=== PATIENT | female | born 1955 | race Caucasian/White ===

== ENCOUNTER 2019-11-08 16:54 | Inpatient (IN) | payer MEDICARE, MEDICAID ==
[~2019-11-08] VITALS: Ht 167.6 cm; Wt 57.2 kg
--- NOTE | 2019-11-08 17:00 | NUR ---
Bibra78, from snf, altered, hypotension started yesterday 11am, BS 136. Per daughter pt has been becoming weaker x3 days. Pt is Bulgarian speaking AAOX4. Able to move with assistance. Low BP upon assessment, Placed on 1L NS per MD order. Awaiting MD for further orders.
--- NOTE | 2019-11-08 17:19 | NUR ---
URINE SENT TO LAB
--- NOTE | 2019-11-08 17:20 | NUR ---
FAMILY RESOURCE SPECIALIST AT BEDSIDE FOR LABS
[2019-11-08 17:27] LABS: BASOPHILS % (AUTO) 0.1 % (0.0-2.0); EOSINOPHILS % (AUTO) 0.4 % (0.0-6.0); HEMATOCRIT 28 % (33-45); HEMOGLOBIN 8.7 g/dL (11.5-14.8); LYMPHOCYTES # (AUTO) 0.4 /CMM (0.8-4.8); LYMPHOCYTES % (AUTO) 1.5 % (20.0-44.0); MEAN CORPUSCULAR HGB CONC 31 g/dl (31.0-36.0); MEAN CORPUSCULAR VOLUME 94 fL (82-100); MONOCYTES # (AUTO) 0.2 /CMM (0.1-1.30); MONOCYTES % (AUTO) 0.8 % (2.0-12.0); NEUTROPHILS # (AUTO) 26.4 /CMM (1.8-8.9); NEUTROPHILS % (AUTO) 97.2 % (43.0-81.0); PLATELET COUNT (AUTO) 225 /CMM (150-450); RED BLOOD CELL COUNT(AUTO) 2.98 MIL/uL (4.0-5.2); WHITE BLOOD COUNT (AUTO) 27.2 K/uL (4.3-11.0)
[2019-11-08] MEDS ORDERED: VANCOMYCIN 1 GM in IV D5W 250 ML IV ONE (17:30)
[2019-11-08] MEDS ORDERED: MEROPENEM 1,000 MG in IV NS 0.9% 100 ML IV ONE (17:30)
[2019-11-08] MEDS ORDERED: IV NS 0.9% 1,000 ML BAG IV ONE (17:30)
--- NOTE | 2019-11-08 17:34 | NUR ---
SILK SNAPPER AT BEDSIDE FOR CENTRAL LINE INSERTION.
[2019-11-08 17:38] LABS: APPEARANCE,URINE Cloudy (CLEAR); BILIRUBIN,URINE MODERATE (NEGATIVE); BLOOD, URINE Moderate Ery/uL (NEGATIVE); COLOR,URINE Yellow (YELLOW); KETONES,URINE Negative (NEGATIVE); LEUKOCYTE ESTERASE ,URINE Small (NEGATIVE); NITRITE, URINE Negative (NEGATIVE); PROTEIN,URINE 30 mg/dl (NEGATIVE); UGLUCOSE Negative (NEGATIVE); UROBILINOGEN,URINE 0.2 EU/dL (0.2)
[2019-11-08 17:49] LABS: ALANINE AMINOTRANSFERASE 77 U/L (12-78); ALKALINE PHOSPHATASE 631 U/L (46-116); ASPARTATE AMINOTRANSFERASE 64 U/L (15-37); BILIRUBIN,DIRECT 2.7 mg/dL (0.0-0.2); BILIRUBIN,TOTAL 3.2 mg/dL (0.2-1.0); CALCIUM, SERUM 9.3 mg/dL (8.5-10.1); CARBON DIOXIDE 23 mmol/L (21-32); CHLORIDE 111 mmol/L (98-107); GLUCOSE 165 mg/dL (74-106); POTASSIUM 4.1 mmol/L (3.5-5.1); SODIUM SERUM 146 mmol/L (136-145); TOTAL PROTEIN, SERUM 6.7 g/dL (6.4-8.2)
[2019-11-08 17:51] LABS: ALBUMIN 1.2 g/dL (3.4-5.0); UREA NITROGEN, BLOOD 112 mg/dL (7-18)
[2019-11-08 17:53] LABS: BACTERIA,URINE 3+ /HPF (None Seen); SQUAMOUS EPITHELIAL CELL,UR Few /HPF (None Seen)
--- NOTE | 2019-11-08 17:55 | NUR ---
PIC INSERTED RA
--- NOTE | 2019-11-08 18:12 | NUR ---
PT RESTING. VSS.
--- NOTE | 2019-11-08 18:25 | NUR ---
CALLED FOR BED AND SUBMITTED MOVE SHEET TO ADMITTING
--- NOTE | 2019-11-08 18:25 | NUR ---
Francisca mariano in [facility] - 11/08/19 at 1826 by ESTHELA CA
[2019-11-08] MEDS ORDERED: ACET-2605 GT (18:27)
[2019-11-08] MEDS ORDERED: HYDROMORPHONE PO (18:27)
[2019-11-08] MEDS ORDERED: ACET325T53 GT (18:27)
[2019-11-08] MEDS ORDERED: AMIN887L PO (18:27)
[2019-11-08] MEDS ORDERED: CRAN3875 GT (18:27)
[2019-11-08] MEDS ORDERED: NALO1DIS2 IJ (18:27)
[2019-11-08] MEDS ORDERED: PROC10TA13 PO (18:27)
[2019-11-08] MEDS ORDERED: MULT-439 PO (18:27)
[2019-11-08] MEDS ORDERED: PAPA1TAB10 PO (18:27)
[2019-11-08] MEDS ORDERED: NUTR1PAC14 PO (18:27)
[2019-11-08] MEDS ORDERED: INSU100V42 (18:27)
[2019-11-08] MEDS ORDERED: [UNRECOGNIZED DRUG - CODE] IV (18:27)
[2019-11-08] MEDS ORDERED: ASCO500T20 GT (18:27)
[2019-11-08] MEDS ORDERED: FENT1PAT5 TD (18:27)
[2019-11-08] MEDS ORDERED: PANT40TA4 PO (18:27)
[2019-11-08] MEDS ORDERED: SCOP1PAT11 TD (18:27)
[2019-11-08] MEDS ORDERED: OCTR200V2 IJ (18:27)
[2019-11-08] MEDS ORDERED: ONDA8TAB13 PO (18:27)
--- NOTE | 2019-11-08 19:08 | NUR ---
AFTER FLUIDS BY 91/37 HR: 100 96 ON 2L NC
[2019-11-08 19:11] LABS: BAND % (MANUAL) 9 % (0.0-5.0); EOSINOPHILS % (MANUAL) 1 % (0-4); LYMPHOCYTES % (MANUAL) 2 % (16-48); NEUTROPHILS % (MANUAL) 88 (42-76)
[2019-11-08] MEDS ORDERED: NOREPINEPHRINE 8 MG in IV D5W 500 ML IV PRN ×2 (19:30→23:30)
--- NOTE | 2019-11-08 19:30 | NUR ---
ANDREZ CALLED ITS KERZUMA
--- NOTE | 2019-11-08 19:36 | NUR ---
PT STARTED ON LEVO 5MCG/MIN HR: 101 BP: 78/40 O2: 97 ON 2L NC DAUGHTER AT BEDSIDE. WILL CONTINUE TO MONITOR.
--- NOTE | 2019-11-08 20:44 | NUR ---
ICU 252
[2019-11-08] MEDS ORDERED: VANCOMYCIN HCL 0.75 GM in IV D5W 250 ML IV SCH (21:00)
[2019-11-08] MEDS ORDERED: HYDROCODONE/APAP 5/325MG 1 EACH TABLET PO PRN (21:00)
[2019-11-08] MEDS ORDERED: VANCOMYCIN HCL 1.25 GM in IV D5W 260 ML IV ONE (21:00)
[2019-11-08] MEDS ORDERED: ACETAMINOPHEN 325 MG TABLET PO PRN (21:00)
[2019-11-08] MEDS ORDERED: ZOLPIDEM TARTRATE 5 MG TABLET PO PRN (21:00)
[2019-11-08] MEDS ORDERED: MAGNESIUM HYDROXIDE 30 ML UDC PO PRN (21:00)
[2019-11-08] MEDS ORDERED: MAG HYDROX/AL HYDROX/SIMETH 30 ML UDC PO PRN (21:00)
[2019-11-08] MEDS ORDERED: MEROPENEM 500 MG in IV NS 0.9% 50 ML IV SCH (21:00)
[2019-11-08] MEDS ORDERED: Z GUARD REMEDY 2 OZ OINT TP PRN (21:00)
--- NOTE | 2019-11-08 21:34 | NUR ---
DUPLEX AT BEDSIDE
[2019-11-08] MEDS ORDERED: FEE PK DOSING 1 MIN EA MC ONE (22:06)
[2019-11-08] MEDS ORDERED: ENOXAPARIN SODIUM 100 MG/ML DISP.SYRIN SQ STA (22:11)
[2019-11-08] MEDS ORDERED: ENOXAPARIN SODIUM 100 MG/ML DISP.SYRIN SQ ONE (22:23)
--- NOTE | 2019-11-08 23:00 | NUR ---
REPORT GIVEN TO ADELIA HUDSON FOR DOMINGO
[2019-11-08] MEDS ORDERED: HYDROMORPHONE 1 MG/1 ML DISP.SYRIN ONE (23:08)
--- NOTE | 2019-11-08 23:27 | NUR ---
PT TRANSFERED PER ACLS PROTOCOL
[2019-11-08 23:30] VITALS: BP 119/56
[2019-11-08] MEDS ORDERED: HYDROMORPHONE 1 MG/1 ML DISP.SYRIN IV PRN (23:30)
--- NOTE | 2019-11-08 23:30 | NUR ---
RN NOTES RECEIVED PATIENT FROM ER. PATIENT ARRIVED ON GURNEY . PATIENT PLACED IN ROOM 252, ON 2L O2 VIA NC WITH SPO2 OF 96%. PATIENT IS A/OX4 POLISH/ BELGIAN SPEAKING, SR ON THE INSPECTOR HEALTH CARE FACILITIES. 2 NEPHROSTOMY TUBES ARE NOTED IN PLACE DRAINING DARK YELLOW URINE. G-TUBE IS IN PLACE AND CONNECTED TO DRAINING BAG FOR GRAVITY DRAINAGE AND DRAINING GREEN FLUID. RIGHT COLOSTOMY BAG IS IN PLACE WITH MINIMAL OUTPUT OF YELLOWISH COLOR. COLOSTOMY BAG, NEPHROSTOMY TUBES AND GT DRAINAGE ARE PATIENT AND INTACT. PATIENT IS COMPLAINING OF 3/10 GENERALIZED PAIN AT THIS TIME.PATIENT LEFT LOWER EXTREMITY. IS SWOLLEN DUE TO DVT, ALSO PATIENT IS + FOR LEFT UPPER EXTREMITY DVT. PATIENT HAD RIGHT UPPER ARM PICC LINE IN PLACE AND RIGHT UPPER CHEST WALL PENTACATH IN PLACE WELL. PATIENT'S DAUGHTER IS AT THE BEDSIDE. PATIENT IS ORIENTED TO THE UNIT AND CALL [facility] AND ASKED TO CALL FOR HELP AND ASSISTANCE. ALL SAFETY MEASURES ARE IN PLACE, BED IN LOW, LOCKED POSITION, CALL LIGHT IN REACH. WILL CONTINUE TO MONITOR PATIENT CLOSELY.
[2019-11-08 23:45] VITALS: BP 115/59
[2019-11-09] VITALS (55 sets, daily range): BP systolic 102–141; BP diastolic 51–87
[2019-11-09] MEDS: HYDROMORPHONE 1 MG/1 ML DISP.SYRIN IV PRN (01:49)
[2019-11-09] MEDS: HYDROMORPHONE INJ 2 MG/ML DISP.SYRIN IV PRN ×4 (02:53→20:14)
[2019-11-09] MEDS: IV NS 0.9% 1,000 ML IV PRN ×3 (03:36→16:39)
[2019-11-09 05:40] LABS: BASOPHILS % (AUTO) 0.1 % (0.0-2.0); HEMATOCRIT 27 % (33-45); HEMOGLOBIN 8.4 g/dL (11.5-14.8); LYMPHOCYTES # (AUTO) 1.1 /CMM (0.8-4.8); LYMPHOCYTES % (AUTO) 4.3 % (20.0-44.0); MEAN CORPUSCULAR HGB CONC 31 g/dl (31.0-36.0); MEAN CORPUSCULAR VOLUME 93 fL (82-100); MONOCYTES # (AUTO) 0.7 /CMM (0.1-1.30); MONOCYTES % (AUTO) 2.8 % (2.0-12.0); NEUTROPHILS % (AUTO) 92.8 % (43.0-81.0); PLATELET COUNT (AUTO) 230 /CMM (150-450); RED BLOOD CELL COUNT(AUTO) 2.93 MIL/uL (4.0-5.2); WHITE BLOOD COUNT (AUTO) 25.9 K/uL (4.3-11.0)
[2019-11-09 05:48] LABS: THYROID STIMULATING HORMONE 0.943 uIU/mL (0.358-3.74)
[2019-11-09 05:50] LABS: CALCIUM, SERUM 8.2 mg/dL (8.5-10.1); CREATININE 0.9 mg/dL (0.6-1.3); MAGNESIUM 2.9 mg/dL (1.8-2.4); PHOSPHORUS 4.7 mg/dL (2.5-4.9); POTASSIUM 3.6 mmol/L (3.5-5.1)
[2019-11-09] MEDS: VANCOMYCIN HCL 0.75 GM in IV D5W 250 ML IV SCH ×2 (06:05→17:40)
[2019-11-09] MEDS: MEROPENEM 500 MG in IV NS 0.9% 100 ML IV SCH ×2 (06:05→17:40)
--- NOTE | 2019-11-09 07:00 | NUR ---
TROLLEY CAR OVERHAULER NOTES RECEIVED BEDSIDE REPORT. PT SLEEPING ABLE TO AROUSE WITH VOICE AND TOUCH AFGHAN SPEAKING. A/O X4 NO S/S OF RESPIRATORY DISTRESS ON 2 LTRS NC NO ACUTE PAIN NOTED AT THIS TIME. SR ON MONITOR VITALS STABLE. BILATERAL NEPHROSTOMY BAGS DRAINING CLEAR YELLOW URINE. GT TO GRAVITY DRAINING GREEN BILE. PER REPORT BILATERAL LEFT EXT + FOR DVT NO BLOOD DRAWS OR BP TO BE TAKEN ON LEFT SIDE. GEORGE PICC LEVO @ 3MCG/MIN CURRENT BP 126/56. NS @ 125 ML/HR. SAFETY PRECAUTIONS IN PLACE BED IN LOW LOCKED POSITION PAIN MANAGEMENT FOCUSED.
--- NOTE | 2019-11-09 08:29 | NUR ---
WOUND CARE CONSULT ; UNABLE TO SEE PATIENT FOR CONSULT ,UNSTABLE FOR TURNING PER NURSING ,FAMILY DOESN'T WANT TP PATIENT TO TURN, WILL ATTEMPT WHEN PATIENT STATUS PERMITS, ALL PRESSURE ULCERS PREVENTIVE MEASURERS ARE NOTED TO BE IN PLACE,ISOFLEX LINETTE BED IN USE
--- NOTE | 2019-11-09 08:30 | NUR ---
LEVOPHED TITRATED NOW ON HOLD BP 114/67 HR 95 WILL CONT TO MONITOR
[2019-11-09] MEDS: PANTOPRAZOLE 40 MG VIAL IV SCH (09:25)
[2019-11-09] MEDS: ENOXAPARIN SODIUM 60 MG/0.6 ML DISP.SYRIN SQ SCH ×2 (09:28→21:52)
--- NOTE | 2019-11-09 09:50 | NUR ---
WOUND CARE CONSULT PATIENT PER NURSING NOT ABLE TO BE TURNED FOR SKIN ASSESSMENT AND ASSESSMENT OF SACRAL ULCER. 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 PATIENT WITH DIXON AT 14. TREATMENT RECOMMENDATIONS MADE BASED ON PHOTO IMAGES. RECOMMEND TURNING AND REPOSITIONING Q 2 HOURS, BILATERAL HEEL FLOATING TOLERATED BY PATIENT. PER NURSING, PATIENT HAS PAIN WITH TURNING. ALL PRESSURE ULCER PREVENTION MEASURES ARE NOTED TO BE IN PLACE AT THIS TIME. WILL ATTEMPT TO EVALUATE PATIENT PATIENT STATUS PERMITS. ALL DISCUSSED WITH NURSING AT THE BEDSIDE.
[2019-11-09] MEDS: HYDROCORTISONE SOD SUCCINATE 100 MG/2 ML VIAL IV SCH ×3 (11:17→17:33)
[2019-11-09] MEDS: IV NS 0.9% 250 ML IV PRN (16:43)
[2019-11-09] MEDS ORDERED: TPN/PPN PER PHARMACY XX PRN (17:00)
[2019-11-09] MEDS ORDERED: FAT EMULSION 20% 500 ML in PREMIX 1 EA IV PRN (17:00)
--- NOTE | 2019-11-09 17:00 | NUR ---
per geovanny stephens NP FNS to evaluate pt in the AM for TPN start pt on D10w@100 ml/hr
[2019-11-09] MEDS: IV 10% DEXTROSE 1,000 ML IV PRN (18:46)
[2019-11-10] VITALS (32 sets, daily range): BP systolic 112–160; BP diastolic 60–84
[2019-11-10] MEDS ORDERED: IPRATROPIUM NEB FS 0.5 MG/2.5 ML AMPUL.NEB NEB PRN (01:00)
[2019-11-10] MEDS ORDERED: LEVALBUTEROL HCL NEB 1.25 MG/0.5 ML VIAL.NEB NEB PRN (01:00)
[2019-11-10] MEDS: HYDROMORPHONE INJ 2 MG/ML DISP.SYRIN IV PRN ×4 (01:01→16:07)
[2019-11-10] MEDS: IV 10% DEXTROSE 1,000 ML IV PRN (04:23)
[2019-11-10 05:21] LABS: CALCIUM, SERUM 7.8 mg/dL (8.5-10.1); MAGNESIUM 2.6 mg/dL (1.8-2.4)
--- NOTE | 2019-11-10 05:45 | NUR ---
GOT A CALL FROM LAB BLOOD WORK FOR VANCO TROUGH WAS SENT OUT AND VANCO TROUGH WILL BE DELAYED. WILL AMI FOR RESOLUTES TO ADMINISTER 0600 VANCOMYCYN.
[2019-11-10] MEDS: VANCOMYCIN HCL 0.75 GM in IV D5W 250 ML IV SCH ×2 (06:00→07:57)
[2019-11-10] MEDS: MEROPENEM 500 MG in IV NS 0.9% 100 ML IV SCH ×2 (06:07→17:38)
--- NOTE | 2019-11-10 07:10 | NUR ---
SPOKE WITH [facility] PHARMACIST WHO SAID ITS OK TO ADMINISTER 0600 VANCOMYCIN
[2019-11-10] MEDS ORDERED: DEXTROSE 50%-WATER 50 ML DISP.SYRIN IV PRN (07:30)
[2019-11-10] MEDS: HYDROCORTISONE SOD SUCCINATE 100 MG/2 ML VIAL IV SCH ×3 (08:10→17:38)
[2019-11-10] MEDS: ENOXAPARIN SODIUM 60 MG/0.6 ML DISP.SYRIN SQ SCH ×2 (08:11→21:57)
[2019-11-10] MEDS: PANTOPRAZOLE 40 MG VIAL IV SCH (08:11)
[2019-11-10] MEDS: ONDANSETRON HCL/PF 4 MG/2 ML VIAL IVP PRN (09:26)
[2019-11-10 09:48] LABS: ABG BASE EXCESS -6.8 mmol/L; ABG OXYGEN SATURATION 95.5 % (92.0-98.5); ABG PCO2 30.1 mmHg (35.0-45.0); ABG PH 7.373 (7.350-7.450); ABG PO2 84.7 mmHg (75.0-100.0); AaDO2 79.4 mmHg; COHb 0.1 % (0.5-1.5); MetHb 0.4 % (0.0-1.5); SITE, ABG Left Radial; VENT MODE, BG Nasal Cannula
[2019-11-10] MEDS: MUPIROCIN OINT 2% 22 GM TUBE SCH ×2 (10:26→22:01)
[2019-11-10] MEDS ORDERED: FEE TPN 1 MIN EA MC ONE (11:31)
[2019-11-10] MEDS: INSULIN REGULAR, HUMAN 100 UNIT/ML 3 ML VIAL SQ PRN ×3 (11:44→23:59)
[2019-11-10] MEDS ORDERED: TPN BAG #1 IV PRN ×4 (12:00)
[2019-11-10] MEDS: BLOOD SUGAR DIAGNOSTIC 1 EACH STRIP IN SCH ×3 (12:11→23:58)
[2019-11-10] MEDS: FAT EMULSION 20% 500 ML in PREMIX 1 EA IV SCH (13:54)
--- NOTE | 2019-11-10 19:15 | NUR ---
BILATERAL NEPHROSTOMY TUBES HAD EQUAL OUTPUT THROUGHOUT AM SHIFT.
--- NOTE | 2019-11-10 19:56 | NUR ---
GRAPHIC DESIGN ASSISTANT. INITIAL ASSESSMENT. RECEIVED THE PT REST ON THE BED. AWAKE, ALERT. LETHARGIC, ROVING TESTER LABORATORY SHOWING NSR. OXYGEN 2L VIA NASAL CANNULA. SAT 98%. NO ACUTE DISTRESS NOTED. HOB ELEVATED. VASQUEZ NEPHROSTOMY TUBE INTACT. COLOSTOMY TUBE INTACT. COLOSTOMY DRAINING, IV RT UPPER ARM PICC LINE. TPN 75ML/H,LIPID 20ML/H.WILL CONTINUE TO MONITOR VITALS.
[2019-11-10] MEDS: HYDROMORPHONE 1 MG/1 ML DISP.SYRIN IV PRN (21:48)
[2019-11-10] MEDS: VANCOMYCIN 500 MG in IV D5W 100 ML IV SCH (22:01)
[2019-11-10] MEDS: IV NS 0.9% 250 ML IV PRN (22:02)
[2019-11-10] MEDS ORDERED: TPN BAG #2 IV PRN ×4 (23:00)
[2019-11-11] VITALS (7 sets, daily range): BP systolic 110–141; BP diastolic 58–87
[2019-11-11] MEDS: HYDROMORPHONE INJ 2 MG/ML DISP.SYRIN IV PRN ×4 (00:25→17:54)
--- NOTE | 2019-11-11 00:34 | NUR ---
HVAC MAINTENANCE TECHNICIAN. TRANSFER THE PT TO ROOM 108. REPORT GIVEN TO CHUCK HUDSON. PT IS STABLE.
--- NOTE | 2019-11-11 00:36 | NUR ---
CUPOLA HOIST OPERATOR PT C/O GENERALIZED PAIN DILAUDID GIVEN PER MD ORDERED
--- NOTE | 2019-11-11 03:03 | NUR ---
rn notes received patient from icu endorsed by jewels barrios in stable condition. no apparent distress noted with 02 sat of 85%. Breathing even and unlabored. on nasal cannula at 2lpm tolerating well. no physical manifestation of pain or discomfort as of this time. alert to self, non verbal. noted with elevated fluid filled vesicles. picture inside the chart. kept clean and dry.
[2019-11-11] MEDS: MEROPENEM 500 MG in IV NS 0.9% 100 ML IV SCH ×2 (04:56→18:13)
[2019-11-11] MEDS: INSULIN REGULAR, HUMAN 100 UNIT/ML 3 ML VIAL SQ PRN ×3 (05:43→18:13)
[2019-11-11] MEDS: BLOOD SUGAR DIAGNOSTIC 1 EACH STRIP IN SCH ×3 (05:44→17:56)
[2019-11-11 06:53] LABS: BASOPHILS # (AUTO) 0.1 /CMM (0.0-0.2); BASOPHILS % (AUTO) 0.5 % (0.0-2.0); HEMATOCRIT 27 % (33-45); HEMOGLOBIN 9.3 g/dL (11.5-14.8); LYMPHOCYTES # (AUTO) 0.9 /CMM (0.8-4.8); LYMPHOCYTES % (AUTO) 6.3 % (20.0-44.0); MEAN CORPUSCULAR HGB CONC 34 g/dl (31.0-36.0); MEAN CORPUSCULAR VOLUME 93 fL (82-100); MONOCYTES # (AUTO) 0.4 /CMM (0.1-1.30); MONOCYTES % (AUTO) 3.1 % (2.0-12.0); NEUTROPHILS # (AUTO) 12.9 /CMM (1.8-8.9); NEUTROPHILS % (AUTO) 90.1 % (43.0-81.0); PLATELET COUNT (AUTO) 228 /CMM (150-450); RED BLOOD CELL COUNT(AUTO) 2.94 MIL/uL (4.0-5.2); WHITE BLOOD COUNT (AUTO) 14.3 K/uL (4.3-11.0)
[2019-11-11] MEDS: HYDROCORTISONE SOD SUCCINATE 100 MG/2 ML VIAL IV SCH ×3 (08:57→17:56)
[2019-11-11] MEDS: PANTOPRAZOLE 40 MG VIAL IV SCH (08:57)
[2019-11-11] MEDS: ENOXAPARIN SODIUM 60 MG/0.6 ML DISP.SYRIN SQ SCH ×2 (08:58→21:59)
[2019-11-11] MEDS: HYDROMORPHONE 1 MG/1 ML DISP.SYRIN IV PRN ×3 (09:10→21:57)
[2019-11-11] MEDS: MUPIROCIN OINT 2% 22 GM TUBE SCH ×2 (10:04→22:04)
[2019-11-11] MEDS: VANCOMYCIN 500 MG in IV D5W 100 ML IV SCH ×2 (10:11→21:56)
[2019-11-11 11:22] LABS: BILIRUBIN,DIRECT 2.4 mg/dL (0.0-0.2); BILIRUBIN,TOTAL 3.1 mg/dL (0.2-1.0); CALCIUM, SERUM 7.5 mg/dL (8.5-10.1); CREATININE 0.7 mg/dL (0.6-1.3); POTASSIUM 3.9 mmol/L (3.5-5.1); TOTAL PROTEIN, SERUM 5.9 g/dL (6.4-8.2)
[2019-11-11 11:25] LABS: ALBUMIN 1.2 g/dL (3.4-5.0)
[2019-11-11] MEDS: ONDANSETRON HCL/PF 4 MG/2 ML VIAL IVP PRN (11:37)
[2019-11-11] MEDS ORDERED: TPN BAG #3 IV PRN ×6 (13:00→14:44)
[2019-11-11] MEDS ORDERED: TPN BAG #4 IV PRN ×4 (13:00)
[2019-11-11 13:24] LABS: MAGNESIUM 2.3 mg/dL (1.8-2.4); PHOSPHORUS 2.1 mg/dL (2.5-4.9)
[2019-11-11] MEDS ORDERED: TPN BAG 4 IV PRN ×6 (14:51)
[2019-11-12] MEDS: INSULIN REGULAR, HUMAN 100 UNIT/ML 3 ML VIAL SQ PRN ×4 (00:08→23:27)
[2019-11-12] MEDS: BLOOD SUGAR DIAGNOSTIC 1 EACH STRIP IN SCH ×5 (00:09→23:40)
--- NOTE | 2019-11-12 00:20 | NUR ---
PATIENT IS AWAKE MOANING, DILAUDID 2 MG IV GIVEN PRN MED. DRESSING ON THE LEFT LOWER ABDOMEN G-TUBE CHANGED, WITH SMALL AMOUNT OF DRIED EXUDATE, WITH VERY SMALL PINKISH RASHES AROUND THE SITE, G-TUBE INTACT AND SECURED WITH PAPER TAPE, DRAINING TO A GREENISH OUTPUT TUBE CONNECTED TO A URIAS BAG. PATIENT HAS RIGHT LOWER ABDOMEN COLOSTOMY, BAG IS INTACT, NO LEAKING. WITH LIGHT BROWNISH WATERY OUTPUT, WITH VERY SMALL AMOUNT OUTPUT. PATIENT HAS BILATERAL NEPHROSTOMY TUBE INTACT, DRAINING TO AN DEEPAK COLORED OUTPUT, UNABLE TO ASSESS THE SITES AT THIS TIME, PATIENT REFUSED. PATIENT HAS MULTIPLE SKIN LESIONS ON THE LOWER ABDOMEN AND ON HER UPPER THIGHS. BED ALARM ON AND BED IN LOWEST AND LOCKED POSITION. CALL LIGHT WITHIN REACH. SON OF THE PATIENT WAS AT THE BEDSIDE EARLIER AT THE BEGINNING OF THE SHIFT. HOB ELEVATED AT ALL TIMES. PATIENT IS NPO, JEWELRY SETTER AWARE. WITH TPN RUNNING AT 75ML/HR. PATIENT IS ON O2 AT 2L/MIN. PATIENT HAS AIR MATTRESS. CONTACT ISOLATION OBSERVED AT ALL TIMES. UNABLE TO ASSESS THE PATIENT'S HEELS AT THIS TIME,PATIENT REFUSED TO BE MOVED.
--- NOTE | 2019-11-12 00:54 | NUR ---
V/S TAKEN BY THE MONUMENT STONECUTTER. RECORDED.AFEBRILE.
[2019-11-12 04:00] VITALS: BP 160/91
[2019-11-12] MEDS: HYDROMORPHONE INJ 2 MG/ML DISP.SYRIN IV PRN ×5 (04:07→20:44)
[2019-11-12] MEDS: ONDANSETRON HCL/PF 4 MG/2 ML VIAL IVP PRN ×2 (04:07→11:20)
--- NOTE | 2019-11-12 04:55 | NUR ---
BEDBATH DONE. JONATHAN-CARE DONE.PATIENT TOLERATED. KEPT PATIENT DRY. DRESSING ON THE SACRAL CHANGED. SACRAL OPEN PRESSURE ULCER-CLEANSED WITH NS, PAT DRIED, AND APPLIED SMALL PIECE OF OIL EMULSION DRESSING TO THE WOUND AND COVERED WITH MEPILEX DRESSING. TURNED PATIENT TO THE RIGHT SIDE WITH PILLOWS AT THE BACK. HOB ELEVATED. CALL LIGHT WITHIN REACH. BED ALARM ON. BED IN LOWEST AND LOCKED POSITION. BOTH HEELS OFFLOADED WITH PILLOWS. DRESSINGS ON BOTH NEPHROSTOMY TUBES ARE DRY AND INTACT, NO LEAKING. RIGHT NEPHRO TUBE DRAINED 300ML OUTPUT, AND LEFT NEPHRO SRJE=[id number]. COLOSTOMY DRAINED 25 ML OUTPUT. AND G-TUBE [id number]. RECORDED.
[2019-11-12] MEDS: MEROPENEM 500 MG in IV NS 0.9% 100 ML IV SCH ×2 (05:11→17:36)
[2019-11-12] MEDS: HYDROMORPHONE 1 MG/1 ML DISP.SYRIN IV PRN ×6 (06:05→22:47)
--- NOTE | 2019-11-12 06:14 | NUR ---
BLOOD SUGAR FINGERSTICK= 129, NO INSULIN GIVEN.
--- NOTE | 2019-11-12 07:30 | NUR ---
INITIAL PATIENT IS AWAKE MOANING, DILAUDID 2 MG IV GIVEN PRN MED. DRESSING ON THE LEFT LOWER ABDOMEN G-TUBE CHANGED, WITH SMALL AMOUNT OF DRIED EXUDATE, WITH VERY SMALL PINKISH RASHES AROUND THE SITE, G-TUBE INTACT AND SECURED WITH PAPER TAPE, DRAINING TO A GREENISH OUTPUT TUBE CONNECTED TO A URIAS BAG. PATIENT HAS RIGHT LOWER ABDOMEN COLOSTOMY, BAG IS INTACT, NO LEAKING. WITH LIGHT BROWNISH WATERY OUTPUT, WITH VERY SMALL AMOUNT OUTPUT. PATIENT HAS BILATERAL NEPHROSTOMY TUBE INTACT, DRAINING TO AN DEEPAK COLORED OUTPUT, UNABLE TO ASSESS THE SITES AT THIS TIME, PATIENT REFUSED. PATIENT HAS MULTIPLE SKIN LESIONS ON THE LOWER ABDOMEN AND ON HER UPPER THIGHS. BED ALARM ON AND BED IN LOWEST AND LOCKED POSITION. CALL LIGHT WITHIN REACH. SON OF THE PATIENT WAS AT THE BEDSIDE EARLIER AT THE BEGINNING OF THE SHIFT. HOB ELEVATED AT ALL TIMES. PATIENT IS NPO, DOBBY LOOM WEAVER AWARE. WITH TPN RUNNING AT 75ML/HR. PATIENT IS ON O2 AT 2L/MIN. PATIENT HAS AIR MATTRESS. CONTACT ISOLATION OBSERVED AT ALL TIMES. UNABLE TO ASSESS THE PATIENT'S HEELS AT THIS TIME,PATIENT REFUSED TO BE MOVED.
[2019-11-12 08:00] VITALS: BP_SYST 110; BP_SYST 133; BP_DIAS 65; BP_DIAS 69
[2019-11-12] MEDS: VANCOMYCIN 500 MG in IV D5W 100 ML IV SCH (09:00)
[2019-11-12] MEDS: PANTOPRAZOLE 40 MG VIAL IV SCH (09:06)
[2019-11-12] MEDS: ENOXAPARIN SODIUM 60 MG/0.6 ML DISP.SYRIN SQ SCH ×2 (09:06→20:45)
[2019-11-12] MEDS: MUPIROCIN OINT 2% 22 GM TUBE SCH ×2 (09:07→21:09)
[2019-11-12] MEDS: HYDROCORTISONE SOD SUCCINATE 100 MG/2 ML VIAL IV SCH ×2 (09:07→17:21)
[2019-11-12 09:49] LABS: CALCIUM, SERUM 7.3 mg/dL (8.5-10.1); CREATININE 0.7 mg/dL (0.6-1.3); MAGNESIUM 1.9 mg/dL (1.8-2.4); PHOSPHORUS 1.6 mg/dL (2.5-4.9)
[2019-11-12 09:54] LABS: POTASSIUM 2.8 mmol/L (3.5-5.1)
--- NOTE | 2019-11-12 10:23 | NUR ---
LABS TEXT DAMION AQUINO ABOUT AM K+ LEVEL OF 2.8 CC RESPONDED BACK WILL MONITOR FOR ORDERS
[2019-11-12 11:47] LABS: BASOPHILS # (AUTO) 0.1 /CMM (0.0-0.2); BASOPHILS % (AUTO) 0.4 % (0.0-2.0); HEMATOCRIT 29 % (33-45); HEMOGLOBIN 9.2 g/dL (11.5-14.8); LYMPHOCYTES % (AUTO) 6.9 % (20.0-44.0); MEAN CORPUSCULAR HGB CONC 32 g/dl (31.0-36.0); MEAN CORPUSCULAR VOLUME 92 fL (82-100); MONOCYTES # (AUTO) 0.6 /CMM (0.1-1.30); MONOCYTES % (AUTO) 4.1 % (2.0-12.0); NEUTROPHILS # (AUTO) 12.7 /CMM (1.8-8.9); NEUTROPHILS % (AUTO) 88.6 % (43.0-81.0); PLATELET COUNT (AUTO) 237 /CMM (150-450); WHITE BLOOD COUNT (AUTO) 14.3 K/uL (4.3-11.0)
[2019-11-12 12:00] VITALS: BP 119/66
[2019-11-12] MEDS: FAT EMULSION 20% 500 ML in PREMIX 1 EA IV SCH (13:41)
[2019-11-12] MEDS: POTASSIUM CL. PREMIX PERIPHER. 50 ML IV SCH ×2 (15:56→17:21)
[2019-11-12 16:00] VITALS: BP 97/77
[2019-11-12] MEDS ORDERED: TPN BAG #5 IV PRN ×6 (16:00)
--- NOTE | 2019-11-12 18:15 | NUR ---
CLOSING PT KEPT SAFE ALL HIFT BED IN LOW POSITION ALARMS ON ALL MEDICATIONS GIVEN. WILL GIVE REPORT TO PM SHIFT RN FOR CONTINUITY OF CARE.
--- NOTE | 2019-11-12 19:20 | NUR ---
RN NOTE RECEIVED PT IN BED IN SEMI CASTILLO'S POSITION. PT IS ALERT AND ORIENTED X 3 WITH PERIODS OF FORGETFULNESS. PT ON TPN VIA GEORGE PICC LINE. WILL MONITOR BLOOD GLUCOSE. PT WITH BILATERAL NEPHROSTOMY TUBES AND DRAINING CLEAR DEEPAK COLORED URINE. NO INDICATIONS OF DISTRESS OR DISCOMFORT. CALL LIGHT WITHIN REACH, FAMILY AT BEDSIDE, SAFETY MEASURES IN PLACE, WILL MONITOR.
[2019-11-12 20:00] VITALS: BP 148/80
[2019-11-13] VITALS (9 sets, daily range): BP systolic 126–146; BP diastolic 72–90
[2019-11-13] MEDS: HYDROMORPHONE INJ 2 MG/ML DISP.SYRIN IV PRN ×7 (00:59→21:57)
[2019-11-13] MEDS: HYDROMORPHONE 1 MG/1 ML DISP.SYRIN IV PRN ×3 (03:14→20:06)
--- NOTE | 2019-11-13 04:54 | NUR ---
RN NOTE RECEIVED ALERT FOR CRITICAL LAB INDICATING PRELIMINARY BLOOD CULTURES SHOWING GROWTH FOR GRAM POSITIVE COCCI IN CHAINS. PT IS ALREADY ON MERREM IV Q12H AND VANCOMYCIN IV Q24H, NOTIFIED DR. GARCIA.
--- NOTE | 2019-11-13 05:00 | NUR ---
RN NOTE DR. GARCIA WITH NO NEW ORDERS REGARDING PRELIMINARY BLOOD CULTURE RESULTS.
[2019-11-13] MEDS: ONDANSETRON HCL/PF 4 MG/2 ML VIAL IVP PRN (05:54)
[2019-11-13] MEDS: MEROPENEM 500 MG in IV NS 0.9% 100 ML IV SCH ×2 (06:07→17:39)
[2019-11-13] MEDS: BLOOD SUGAR DIAGNOSTIC 1 EACH STRIP IN SCH ×3 (06:21→16:38)
--- NOTE | 2019-11-13 06:56 | NUR ---
RN NOTE PT IN BED IN SEMI CASTILLO'S POSITION. SON AT BED SIDE. ALERT AND ORIENTED X 3 WITH PERIODS OF FORGETFULNESS. DENIES PAIN OR DISCOMFORT AT THIS TIME. BILATERAL NEPHROSTOMY TUBES DRAINING DEEPAK COLORED URINE. COLOSTOMY TUBE DRAINING DARK GREEN COLORED LIQUID STOOL. CURRENTLY ON TPN VIA PICC LINE ON GEORGE AND TOLERATING WELL. PICC LINE SITE WITHOUT SIGNS OF INFECTION OR COMPLICATIONS. ON 2L OF O2 VIA NC AND TOLERATING WELL. NO SIGNS OF RESPIRATORY DISTRESS AT THIS TIME. CURRENTLY NPO. CALL LIGHT WITHIN REACH, SAFETY MEASURES IN PLACE, WILL ENDORSE TO MORNING SHIFT FOR CONTINUATION OF CARE.
[2019-11-13] MEDS ORDERED: TPN BAG #6 IV PRN ×16 (07:00→12:26)
[2019-11-13 07:37] LABS: BASOPHILS # (AUTO) 0.1 /CMM (0.0-0.2); BASOPHILS % (AUTO) 0.4 % (0.0-2.0); EOSINOPHILS % (AUTO) 0.1 % (0.0-6.0); HEMATOCRIT 30 % (33-45); HEMOGLOBIN 11.2 g/dL (11.5-14.8); LYMPHOCYTES # (AUTO) 1.6 /CMM (0.8-4.8); LYMPHOCYTES % (AUTO) 8.3 % (20.0-44.0); MEAN CORPUSCULAR HGB CONC 38 g/dl (31.0-36.0); MEAN CORPUSCULAR VOLUME 99 fL (82-100); MONOCYTES # (AUTO) 0.3 /CMM (0.1-1.30); MONOCYTES % (AUTO) 1.7 % (2.0-12.0); NEUTROPHILS # (AUTO) 17.3 /CMM (1.8-8.9); NEUTROPHILS % (AUTO) 89.5 % (43.0-81.0); PLATELET COUNT (AUTO) 351 /CMM (150-450); RED BLOOD CELL COUNT(AUTO) 2.99 MIL/uL (4.0-5.2); WHITE BLOOD COUNT (AUTO) 19.3 K/uL (4.3-11.0)
[2019-11-13 08:06] LABS: CREATININE 0.7 mg/dL (0.6-1.3); MAGNESIUM 2.1 mg/dL (1.8-2.4); PHOSPHORUS 3.4 mg/dL (2.5-4.9); POTASSIUM 5.2 mmol/L (3.5-5.1)
[2019-11-13 08:07] LABS: BAND % (MANUAL) 2 % (0.0-5.0); LYMPHOCYTES % (MANUAL) 9 % (16-48); MONOCYTES % (MANUAL) 2 % (0-11.0); NEUTROPHILS % (MANUAL) 87 (42-76)
[2019-11-13] MEDS: PANTOPRAZOLE 40 MG VIAL IV SCH (08:08)
[2019-11-13] MEDS: ENOXAPARIN SODIUM 60 MG/0.6 ML DISP.SYRIN SQ SCH ×2 (08:14→20:07)
[2019-11-13 08:18] LABS: CALCIUM, SERUM 5.4 mg/dL (8.5-10.1)
[2019-11-13] MEDS: VANCOMYCIN 500 MG in IV D5W 100 ML IV SCH (09:01)
[2019-11-13] MEDS: MUPIROCIN OINT 2% 22 GM TUBE SCH ×2 (09:02→20:10)
[2019-11-13 09:10] LABS: ALANINE AMINOTRANSFERASE < 6 U/L (12-78); ALKALINE PHOSPHATASE 518 U/L (46-116); ASPARTATE AMINOTRANSFERASE -4 U/L (15-37); BILIRUBIN,DIRECT 2.3 mg/dL (0.0-0.2); BILIRUBIN,TOTAL 4.2 mg/dL (0.2-1.0); TOTAL PROTEIN, SERUM 5.7 g/dL (6.4-8.2)
[2019-11-13] MEDS: HYDROCORTISONE SOD SUCCINATE 100 MG/2 ML VIAL IV SCH ×2 (09:29→16:44)
--- NOTE | 2019-11-13 11:56 | NUR ---
alert enough to complain of pain, abdominal pain, she said. First dose one mg DILAUDID ivp, per patient's report, did not relieve pain 1030 DILAUDID 2mg ivp given, appeared comfortable, and fell asleep. Son wants to ask whether patient , can also have Fentanyl patch, message relayed to PROFESSOR OF LITERATURE on round today, so far no order written yet, the family made aware
[2019-11-13 12:12] LABS: BILIRUBIN,TOTAL 4.2 mg/dL (0.2-1.0); CALCIUM, SERUM 7.4 mg/dL (8.5-10.1); CREATININE 0.7 mg/dL (0.6-1.3); MAGNESIUM 1.9 mg/dL (1.8-2.4); PHOSPHORUS 1.4 mg/dL (2.5-4.9); POTASSIUM 3.2 mmol/L (3.5-5.1); TOTAL PROTEIN, SERUM 6.3 g/dL (6.4-8.2)
[2019-11-13 12:14] LABS: ALBUMIN 1.2 g/dL (3.4-5.0)
[2019-11-13] MEDS: POTASSIUM CL. PREMIX PERIPHER. 50 ML IV SCH ×4 (14:40→15:31)
--- NOTE | 2019-11-13 15:32 | NUR ---
appeared comfortable with 2mg ivp DILAUDID. Continue with TPN, and thin liquids offered for oral gratification, as instructed. K+ 3.2, got replaced wtih 40meq IVPB, continue running one bag after another ( 4 bag together) BC x 2, with GR + cocci, and clusters on both aerobic, anerobic, patient has been covered with Vanco ivpb, MINGLER OPERATOR aware.
[2019-11-13] MEDS: INSULIN REGULAR, HUMAN 100 UNIT/ML 3 ML VIAL SQ PRN (16:39)
--- NOTE | 2019-11-13 19:20 | NUR ---
mechanical intern: received report from test engineering intern. pt in bed, awake, niuean speaking, last pain meds administered at 1740. pt on isolation mrsa nares. has right upper arm picc line, tlc, one port receiving tpn at bag #6 at 75.072ml/hr, other port receiving merrem iv atb. pt has rcw port-a-cath, not access. posted precaution for left arm as positive for dvt. pt has bilateral nephrostomy tube in placed, bag draining by gravity. pt gtube connected to drainage bag noted greenish colored drainage. noted ble and feet edema, offloaded on pillows. on kci mattress. safety precautions for fall initiated, call light in reach, will continue monitoring pt.
--- NOTE | 2019-11-13 19:37 | NUR ---
rn notes: met with pt's son at bedside, discussed plan of care, also ask permission regarding picture taking of skin issues since its thursday, son spoke with her mother and agree with the photos. also son stated if pt sleeping, wait for pt to call for pain medications. if asleep, to let pt sleep.
--- NOTE | 2019-11-13 20:10 | NUR ---
PRN DILAUDID: PT C/O 03/30 GENERALIZED PAIN, REQUESTING FOR DILAUDID, SON AT BED SIDE, HELPED WITH TRANSLATION. PRN DILAUDID 1MG IVP ADMINISTERED TO PT AT THIS TIME. EDUCATION PROVIDED TO PT AND FAMILY. WILL CONTINUE TO MONITOR PT.
--- NOTE | 2019-11-13 22:00 | NUR ---
prn dilaudid: pt c/o 10/10 abdl pain, requesting for dilaudid, vs taken and recorded prior to administering medication. prn dilaudid 2mg ivp administered to pt at thsi time, will continue to monitor and reassess.
[2019-11-14] VITALS (8 sets, daily range): BP systolic 128–153; BP diastolic 60–88
[2019-11-14] MEDS: HYDROMORPHONE 1 MG/1 ML DISP.SYRIN IV PRN ×7 (00:11→22:11)
--- NOTE | 2019-11-14 00:15 | NUR ---
prn dilaudid and accu check 140: blood sugar check result is 140,. 2units of insulin given per sliding scale, pt on tpn. pt c/o 03/30 abdl pain, translated by hospice patient care secretary vinh, requesting for dilaudid, prn dilaudid 1mg ivp administered to pt at this time. vs taken and recorded prior to administering medication. will continue to monitor and reassess.
[2019-11-14] MEDS: BLOOD SUGAR DIAGNOSTIC 1 EACH STRIP IN SCH ×4 (00:16→18:05)
[2019-11-14] MEDS: INSULIN REGULAR, HUMAN 100 UNIT/ML 3 ML VIAL SQ PRN ×4 (00:17→18:43)
[2019-11-14] MEDS ORDERED: TPN BAG #7 IV PRN ×6 (01:00)
[2019-11-14] MEDS: HYDROMORPHONE INJ 2 MG/ML DISP.SYRIN IV PRN ×4 (01:57→14:02)
--- NOTE | 2019-11-14 01:58 | NUR ---
prn dilaudid: pt crying c/o 06/30 abdl pain, translated in english by jewels gutiérrez, amaury dilaudid 2mg ivp administered to pt at this time. vs taken and recorded prior to administering medication. will continue to monitor and reassess pt.
--- NOTE | 2019-11-14 02:07 | NUR ---
rn notes/refusal for turning and repositioning: pt refused to be reposition, stated she's afraid to be move due to pain, educate pt that prn pain meds administered and will help with managing pain, education provided regarding worsening of sacral pressure injuries, but pt refused turning at this time, lieutenant governor made aware
--- NOTE | 2019-11-14 04:10 | NUR ---
rn notes/tpn bag #7: above tpn bag #6 consumed, completed. new bag will be administered, cosigned with rn mayra thornton. all tubings changed. duane picc line, tlc in placed, port/lumen able to flush easil;y with 10cc ns, with noted brisk blood return. director community organization vinh was approached to helped with translation as rn will be checking vs prior to administering pain medication and tpn bag.
--- NOTE | 2019-11-14 04:15 | NUR ---
PRN DILAUDID: PT C/O 03/30 ABDL PAIN REQUESTING FOR DILAUDID, PRN DILAUDID 1MG IVP ADMINISTERED TO PT AT THIS TIME. WILL CONTINUE TO MONITOR AND REASSESS PT.
[2019-11-14] MEDS: MEROPENEM 500 MG in IV NS 0.9% 100 ML IV SCH ×2 (05:56→18:37)
--- NOTE | 2019-11-14 06:00 | NUR ---
prn dilaudid/accu check 123: pt c/o 06/30 abdl den requesting for dilaudid, vinh community nurse helped with translation. prn dilaudid 2 mg ivp administered to pt at this time. blood glucose check performed , result is 123, no insulin coverage given per sliding scale, pt on tpn.
--- NOTE | 2019-11-14 06:42 | NUR ---
end of shift report: pt remains on 2l oxygen via nc, respirations even and unlabored. prn dilaudid 1mg and 2mg alternately administered per pt request, pain scale ranging 7-8/10. duane p[icc line tlc remains patent and able to flush well with 10cc normal saline, bruisk blood return noted.one port/lumen remains infusing with tpn bag # 7 at 75ml/hr. emptied nephrostomy bag on right emptied total of 300ml, left side 200ml. gtube remains connected to drainage bag via gravity, emptied total of 500ml. colostomy bag emptied 300ml. am care provided, completed linen change provided by orchestra teacher, wound care done as ordered. ble kept offloaded on pillows. plan of care per id to continue with iv atb , am labs schedule for today, per pulmo notes to hold off on thoracentesis, continue with tpn, awaiting vascular surgeon dr keyshawn cerda aware. ppe utilized for isolation mrsa nares. vs remains stable, needs attended. safety precautions for fall remains engaged, call light in reach, will endorse to day rn for continuity of care.
[2019-11-14 06:47] LABS: BASOPHILS # (AUTO) 0.1 /CMM (0.0-0.2); BASOPHILS % (AUTO) 0.4 % (0.0-2.0); HEMATOCRIT 28 % (33-45); HEMOGLOBIN 8.7 g/dL (11.5-14.8); LYMPHOCYTES # (AUTO) 1.2 /CMM (0.8-4.8); LYMPHOCYTES % (AUTO) 5.9 % (20.0-44.0); MEAN CORPUSCULAR HGB CONC 31 g/dl (31.0-36.0); MEAN CORPUSCULAR VOLUME 94 fL (82-100); MONOCYTES # (AUTO) 0.5 /CMM (0.1-1.30); MONOCYTES % (AUTO) 2.5 % (2.0-12.0); NEUTROPHILS # (AUTO) 18.9 /CMM (1.8-8.9); NEUTROPHILS % (AUTO) 91.2 % (43.0-81.0); PLATELET COUNT (AUTO) 333 /CMM (150-450); RED BLOOD CELL COUNT(AUTO) 2.97 MIL/uL (4.0-5.2); WHITE BLOOD COUNT (AUTO) 20.8 K/uL (4.3-11.0)
[2019-11-14 07:08] LABS: CALCIUM, SERUM 7.3 mg/dL (8.5-10.1); CREATININE 0.6 mg/dL (0.6-1.3); MAGNESIUM 2.2 mg/dL (1.8-2.4); POTASSIUM 4.7 mmol/L (3.5-5.1)
--- NOTE | 2019-11-14 07:15 | NUR ---
RN OPENING NOTE: RECEIVED PATIENT IN BED. AWAKE, ALERT AND ORIENTED X3 WITH SON AT BEDSIDE. ON CONT. O2 VIA NC @ 2LPM, TOLERATING WELL. NO SOB AND NOT IN RESPIRATORY DISTRESS. ON CONTACT ISOLATION, PRECAUTIONS OBSERVED. IV SITE CLEAN, DRY, PATENT AND INTACT. ON TPN AND BEING TOLERATED WELL. PAIN REPORTED AT 10/10 FOCUSED ON ABDOMINAL AREA BUT ALSO REPORTED GENERALIZED. WILL CONTINUE PAIN MANAGEMENT FOR PATIENT. BILATERAL NEPHROSTOMY TUBE DRAINING TEA COLORED URINE, GT IN PLACE AND CONNECTED TO DRAINAGE BAG VIA GRAVITY. OSTOMY POUCH WITHOUT ANY DRAINAGE. CALL LIGHT IN REACH. BED LOCKED, LOW AND AT SEMI-CASTILLO'S POSITION. SIDE RAILS UP X3. SAFETY ENSURED AND OBSERVED. WILL CONTINUE TO MONITOR.
[2019-11-14 08:38] LABS: LYMPHOCYTES % (MANUAL) 7 % (16-48); METAMYELOCYTES % 2 % (0-0); MONOCYTES % (MANUAL) 2 % (0-11.0); MYELOCYTES % 2 % (0-0); NEUTROPHILS % (MANUAL) 87 (42-76)
[2019-11-14] MEDS: HYDROCORTISONE SOD SUCCINATE 100 MG/2 ML VIAL IV SCH (09:56)
[2019-11-14] MEDS: PANTOPRAZOLE 40 MG VIAL IV SCH (09:56)
[2019-11-14] MEDS: ENOXAPARIN SODIUM 60 MG/0.6 ML DISP.SYRIN SQ SCH ×2 (09:57→20:31)
[2019-11-14] MEDS: VANCOMYCIN 500 MG in IV D5W 100 ML IV SCH (09:58)
[2019-11-14] MEDS: MUPIROCIN OINT 2% 22 GM TUBE SCH ×2 (09:58→20:50)
[2019-11-14] MEDS ORDERED: LORAZEPAM 1 MG TABLET PO PRN (10:00)
[2019-11-14] MEDS ORDERED: LORAZEPAM INJ 2 MG/ML VIAL IV PRN (12:00)
[2019-11-14] MEDS ORDERED: TPN BAG #8 IV PRN ×7 (14:30)
[2019-11-14] MEDS ORDERED: TPN BAG #9 IV PRN ×5 (14:30)
[2019-11-14] MEDS: FAT EMULSION 20% 500 ML in PREMIX 1 EA IV SCH (14:46)
[2019-11-14] MEDS: FENTANYL PATCH (100 MCG/HR) 100 MCG/HR PATCH.TD72 TD SCH (16:17)
--- NOTE | 2019-11-14 18:00 | NUR ---
RN NOTE: TPN BAG CHANGED TO #8 PER CHERYL FROM PHARMACY.
--- NOTE | 2019-11-14 19:20 | NUR ---
RN OPENING NOTES RECEIVED PATIENT IN BED, AWAKE, ALERT AND ORIENTEDX3 WITH SON AT BEDSIDE. ABLE TO MAKE NEEDS KNOWN. ON OXYGEN 2L VIA NC, TOLERATING WELL. NO SOB OR RESPIRATORY DISTRESS NOTED. IV SITE GEORGE PICC, SITE C/D/I, FLUSHING AND PATENT; ON TPN BAG #8 RUNNING AT 75ML/HR AND IV LIPIDS RUNNING AT 20ML/HR, BOTH TOLERATING WELL. C/O PAIN 06/30 FOCUSED ON ABDOMINAL AREA BUT ALSO REPORTED GENERALIZED, WILL CONTINUE PAIN MANAGEMENT FOR PATIENT. BILATERAL NEPHROSTOMY TUBE DRAINING WELL, GT IN PLACE AND CONNECTED TO DRAINAGE BAG VIA GRAVITY, DRAINING WELL. OSTOMY POUCH INTACT. SAFETY MEASURES IN PLACE; CALL LIGHT WITHIN REACH, BED LOCKED AND IN LOWEST POSITION, SIDE RAILS UP X3, HOB ELEVATED. WILL CONT TO MONITOR PT CLOSELY.
--- NOTE | 2019-11-14 19:20 | NUR ---
RN CLOSING NOTE: PATIENT STILL IN BED. AWAKE, ALERT AND ORIENTED X3 WITH SON AT BEDSIDE. NO ACUTE CHANGES NOTED ON SHIFT. ON CONT. O2 VIA NC @ 3LPM, TOLERATING WELL. NO SOB AND NOT IN RESPIRATORY DISTRESS. ON CONTACT ISOLATION, PRECAUTIONS OBSERVED. IV SITE CLEAN, DRY, PATENT AND INTACT. ON TPN AND FAT EMULSION INFUSION AND BEING TOLERATED WELL. PAIN STILL REPORTED AT 10/10 FOCUSED ON ABDOMINAL AREA BUT ALSO REPORTED GENERALIZED. WITH NEW ORDERS FOR PAIN MANAGEMENT. BILATERAL NEPHROSTOMY TUBE DRAINING TEA COLORED URINE, GT IN PLACE AND CONNECTED TO DRAINAGE BAG VIA GRAVITY. OSTOMY POUCH WITHOUT ANY DRAINAGE. CALL LIGHT IN REACH. BED LOCKED, LOW AND AT SEMI-CASTILLO'S POSITION. SIDE RAILS UP X3. SAFETY ENSURED AND OBSERVED. ENDORSED TO CURRICULUM COUNSELOR FOR DOMINGO.
[2019-11-14] MEDS: HYDROCODONE/APAP 5/325MG 1 EACH TABLET PO PRN (20:37)
[2019-11-15] MEDS: BLOOD SUGAR DIAGNOSTIC 1 EACH STRIP IN SCH ×4 (00:34→17:14)
[2019-11-15] MEDS: HYDROCODONE/APAP 5/325MG 1 EACH TABLET PO PRN ×6 (00:37→22:51)
[2019-11-15] MEDS: INSULIN REGULAR, HUMAN 100 UNIT/ML 3 ML VIAL SQ PRN ×4 (00:38→17:15)
[2019-11-15] MEDS: HYDROMORPHONE 1 MG/1 ML DISP.SYRIN IV PRN ×5 (02:12→19:39)
[2019-11-15 04:00] VITALS: BP 152/78
[2019-11-15] MEDS: MEROPENEM 500 MG in IV NS 0.9% 100 ML IV SCH ×2 (05:39→17:14)
[2019-11-15 07:12] LABS: CALCIUM, SERUM 6.8 mg/dL (8.5-10.1); CREATININE 0.5 mg/dL (0.6-1.3); MAGNESIUM 2.1 mg/dL (1.8-2.4); PHOSPHORUS 1.9 mg/dL (2.5-4.9); POTASSIUM 3.3 mmol/L (3.5-5.1)
--- NOTE | 2019-11-15 07:13 | NUR ---
RN CLOSING NOTES PATIENT RESTING IN BED, AWAKE, ALERT AND ORIENTEDX3, ABLE TO MAKE NEEDS KNOWN. ON OXYGEN 2L VIA NC, TOLERATING WELL. NO SOB OR RESPIRATORY DISTRESS NOTED. IV SITE GEORGE PICC, SITE C/D/I, FLUSHING AND PATENT; ON TPN BAG #9 RUNNING AT 75ML/HR AND IV LIPIDS RUNNING AT 20ML/HR, BOTH TOLERATING WELL. BILATERAL NEPHROSTOMY TUBE DRAINING WELL, GT IN PLACE AND CONNECTED TO DRAINAGE BAG VIA GRAVITY, DRAINING WELL. OSTOMY POUCH INTACT. KEPT PT CLEAN, DRY, AND COMFORTABLE. ALL MD ORDERS ATTENDED. SAFETY MEASURES MAINTAINED. ENDORSED TO AM RN FOR DOMINGO.
[2019-11-15 08:00] VITALS: BP 133/80
[2019-11-15] MEDS: VANCOMYCIN 500 MG in IV D5W 100 ML IV SCH (08:42)
[2019-11-15] MEDS: PANTOPRAZOLE 40 MG VIAL IV SCH (08:42)
[2019-11-15 09:00] LABS: BASOPHILS % (AUTO) 0.2 % (0.0-2.0); EOSINOPHILS % (AUTO) 0.1 % (0.0-6.0); HEMATOCRIT 29 % (33-45); HEMOGLOBIN 9.7 g/dL (11.5-14.8); LYMPHOCYTES # (AUTO) 1.6 /CMM (0.8-4.8); LYMPHOCYTES % (AUTO) 8.1 % (20.0-44.0); MEAN CORPUSCULAR HGB CONC 34 g/dl (31.0-36.0); MEAN CORPUSCULAR VOLUME 94 fL (82-100); MONOCYTES # (AUTO) 0.4 /CMM (0.1-1.30); MONOCYTES % (AUTO) 2.2 % (2.0-12.0); NEUTROPHILS # (AUTO) 17.6 /CMM (1.8-8.9); NEUTROPHILS % (AUTO) 89.4 % (43.0-81.0); PLATELET COUNT (AUTO) 433 /CMM (150-450); RED BLOOD CELL COUNT(AUTO) 3.09 MIL/uL (4.0-5.2); WHITE BLOOD COUNT (AUTO) 19.7 K/uL (4.3-11.0)
[2019-11-15] MEDS ORDERED: HYDROCORTISONE SOD SUCCINATE 100 MG/2 ML VIAL IV SCH (09:00)
[2019-11-15] MEDS: MUPIROCIN OINT 2% 22 GM TUBE SCH ×2 (09:02→21:15)
[2019-11-15] MEDS: ENOXAPARIN SODIUM 60 MG/0.6 ML DISP.SYRIN SQ SCH ×2 (09:54→21:16)
--- NOTE | 2019-11-15 11:30 | NUR ---
RN NOTES seen and examined by Pedro Huber NP. hospitalist informed regarding the need of stronger pain medication since the medication that are being given at this time seem to be not helping the patient. Obtained order for pain management. Dr. Pierce made aware of the consult
[2019-11-15 12:00] VITALS: BP 119/66
[2019-11-15] MEDS ORDERED: TPN BAG #10 IV PRN ×8 (12:30)
[2019-11-15] MEDS ORDERED: TPN BAG #11 IV PRN ×6 (12:30)
--- NOTE | 2019-11-15 13:00 | NUR ---
RN NOTES Paged ADEN Huber to relay low level of potassium and phosphorus. awaiting response
[2019-11-15 16:00] VITALS: BP 140/88
--- NOTE | 2019-11-15 16:00 | NUR ---
RN NOTES Paged ADEN Huber to relay low level of potassium and phosphorus. awaiting response
--- NOTE | 2019-11-15 17:00 | NUR ---
RN NOTES spoke to CecileCASINO HOST was able to relat at this time. has verbalized that he will input orders himself. will wait for orders
[2019-11-15 18:00] VITALS: BP 140/88
--- NOTE | 2019-11-15 19:26 | NUR ---
RN NOTES endorsed for continuity of care. no significant changes within the shift. breathing non labored. patient with continuous complaints of pain despite routine administration of medicine. all nursing needs attended as much as possible. call light within reach. safety measures in place at all times. isolation precaution implemented at all times
--- NOTE | 2019-11-15 19:45 | NUR ---
MS RN OPENING NOTES RECEIVED PATIENT RESTING IN BED, AWAKE, ALERT AND ORIENTEDX3, ABLE TO MAKE NEEDS KNOWN. ON OXYGEN 2L VIA NC, TOLERATING WELL. NO SOB OR RESPIRATORY DISTRESS NOTED. IV SITE GEORGE PICC, SITE C/D/I, FLUSHING AND PATENT; ON TPN BAG #9 RUNNING AT 75ML/HR TOLERATING WELL. BILATERAL NEPHROSTOMY TUBE DRAINING WELL, GT IN PLACE AND CONNECTED TO DRAINAGE BAG VIA GRAVITY, DRAINING WELL. OSTOMY POUCH INTACT. SAFETY MEASURES MAINTAINED. BED IN LOW/LOCKED POSITION CALL LIGHT WITHIN REACH. WILL CONTINUE TO MONITOR.
[2019-11-15 20:00] VITALS: BP 133/84
[2019-11-16] MEDS: BLOOD SUGAR DIAGNOSTIC 1 EACH STRIP IN SCH ×4 (00:56→17:45)
[2019-11-16] MEDS: HYDROMORPHONE 1 MG/1 ML DISP.SYRIN IV PRN ×4 (02:18→22:44)
[2019-11-16 04:00] VITALS: BP 133/84
[2019-11-16] MEDS: MEROPENEM 500 MG in IV NS 0.9% 100 ML IV SCH ×2 (06:29→18:26)
[2019-11-16 06:43] LABS: CALCIUM, SERUM 7.1 mg/dL (8.5-10.1); CREATININE 0.6 mg/dL (0.6-1.3); MAGNESIUM 2.1 mg/dL (1.8-2.4); PHOSPHORUS 3.6 mg/dL (2.5-4.9); POTASSIUM 3.1 mmol/L (3.5-5.1)
[2019-11-16 07:23] LABS: BASOPHILS # (AUTO) 0.1 /CMM (0.0-0.2); BASOPHILS % (AUTO) 0.9 % (0.0-2.0); EOSINOPHILS % (AUTO) 0.1 % (0.0-6.0); HEMATOCRIT 27 % (33-45); HEMOGLOBIN 8.5 g/dL (11.5-14.8); LYMPHOCYTES # (AUTO) 0.7 /CMM (0.8-4.8); LYMPHOCYTES % (AUTO) 4.4 % (20.0-44.0); MEAN CORPUSCULAR HGB CONC 31 g/dl (31.0-36.0); MEAN CORPUSCULAR VOLUME 95 fL (82-100); MONOCYTES # (AUTO) 0.4 /CMM (0.1-1.30); MONOCYTES % (AUTO) 2.7 % (2.0-12.0); NEUTROPHILS # (AUTO) 13.8 /CMM (1.8-8.9); NEUTROPHILS % (AUTO) 91.9 % (43.0-81.0); PLATELET COUNT (AUTO) 379 /CMM (150-450); RED BLOOD CELL COUNT(AUTO) 2.86 MIL/uL (4.0-5.2)
--- NOTE | 2019-11-16 07:36 | NUR ---
MS RN CLOSING NOTES PATIENT RESTING IN BED, ALERT AND ORIENTED X3, ABLE TO MAKE NEEDS KNOWN. ON OXYGEN 2L VIA NC, TOLERATING WELL. NO SOB OR RESPIRATORY DISTRESS NOTED. IV SITE GEORGE PICC, SITE C/D/I, FLUSHING AND PATENT; ON TPN BAG #10 RUNNING AT 75ML/HR TOLERATING WELL. BILATERAL NEPHROSTOMY TUBE DRAINING WELL, GT IN PLACE AND CONNECTED TO DRAINAGE BAG VIA GRAVITY, DRAINING WELL. OSTOMY POUCH INTACT. PATIENT IS NPO SINCE MIDNIGHT DUE TO SURGERY IN THE AM. SAFETY MEASURES MAINTAINED. BED IN LOW/LOCKED POSITION CALL LIGHT WITHIN REACH. ENDORSED THE PATIENT TO AM RN FOR DOMINGO.
[2019-11-16 07:49] LABS: EOSINOPHILS % (MANUAL) 1 % (0-4); LYMPHOCYTES % (MANUAL) 5 % (16-48); MONOCYTES % (MANUAL) 3 % (0-11.0); NEUTROPHILS % (MANUAL) 91 (42-76)
[2019-11-16 08:00] VITALS: BP 129/80
[2019-11-16] MEDS: PANTOPRAZOLE 40 MG VIAL IV SCH (08:38)
[2019-11-16] MEDS: MUPIROCIN OINT 2% 22 GM TUBE SCH ×2 (08:43→21:02)
[2019-11-16] MEDS: ENOXAPARIN SODIUM 60 MG/0.6 ML DISP.SYRIN SQ SCH ×2 (09:00→21:01)
--- NOTE | 2019-11-16 10:24 | NUR ---
WOUND CARE FOLLOW UP: UNABLE TO SEE PT FOR WOUND/SKIN ASSESSMENT DUE TO PT IN O.R. AT THIS TIME. WILL SEE PT PT CONDITION PERMITS.
[2019-11-16] MEDS ORDERED: LIDOCAINE HCL/PF 1% 30 ML SDV ONE (10:25)
[2019-11-16 12:00] VITALS: BP 138/77
--- NOTE | 2019-11-16 12:00 | NUR ---
rn note pt came back to unit from or vs stable, will monitor. co pain in the right chest previous telma cath site. will give paim
[2019-11-16] MEDS ORDERED: METOCLOPRAMIDE HCL 10 MG/2 ML VIAL IV PRN (12:30)
[2019-11-16] MEDS ORDERED: POTASSIUM CHLORIDE 10 MEQ/50 ML PREMIXED IVPB FOR PERIPHERAL LINE IV ONE ×2 (12:30→14:00)
[2019-11-16] MEDS ORDERED: TPN BAG #12 IV PRN ×7 (15:30)
[2019-11-16] MEDS: FAT EMULSION 20% 500 ML in PREMIX 1 EA IV SCH (15:42)
[2019-11-16 16:00] VITALS: BP 138/85
--- NOTE | 2019-11-16 17:00 | NUR ---
rn note pt refused KUB TO BE PERFORMED, STATING "ITS TOO MUCH FOR ME I DO NOT WANT IT NOW, MAY BE TOMORROW". RISKS AND BENEFITS EXPLAINED, SON AWARE, NOTIFIED. PT BEEN VOMITING A LOT TODAY REFUSED ZOFRAN AND REGLAN. GTUBE OUTPUT WAS DECREASED, MAY BE DUE TO KINK AT THE SITE PT WAS PRESSING THE TUBE WITH HER ARM RESTING ON TOP OF HER ABDOMEN, WHEN REPOSITIONED DRAINAGE IMPROVED. WILL MONITOR.
[2019-11-16] MEDS: INSULIN REGULAR, HUMAN 100 UNIT/ML 3 ML VIAL SQ PRN (17:52)
--- NOTE | 2019-11-16 19:10 | NUR ---
PATIENT RESTING IN BED, ALERT AND ORIENTED X3, ABLE TO MAKE NEEDS KNOWN. ON OXYGEN 2L VIA NC, TOLERATING WELL. NO SOB OR RESPIRATORY DISTRESS NOTED. IV SITE GEORGE PICC, SITE FLUSHING PATENT AND INTACT; ON TPN BAG #10 RUNNING AT 75ML/HR TOLERATING WELL. BILATERAL NEPHROSTOMY TUBE DRAINING WELL, GT IN PLACE AND CONNECTED TO DRAINAGE BAG VIA GRAVITY, DRAINING WELL. OSTOMY POUCH INTACT. SAFETY MEASURES MAINTAINED. BED IN LOW/LOCKED POSITION CALL LIGHT WITHIN REACH. WILL CONTINUE TO MONITOR.
[2019-11-16] MEDS: PROCHLORPERAZINE EDISYLATE 10 MG/2 ML VIAL IM PRN (19:49)
[2019-11-16 20:00] VITALS: BP 134/72
[2019-11-17] MEDS: INSULIN REGULAR, HUMAN 100 UNIT/ML 3 ML VIAL SQ PRN ×4 (00:32→18:01)
[2019-11-17] MEDS: BLOOD SUGAR DIAGNOSTIC 1 EACH STRIP IN SCH ×4 (00:33→17:54)
[2019-11-17] MEDS: PROCHLORPERAZINE EDISYLATE 10 MG/2 ML VIAL IM PRN ×2 (01:03→15:04)
[2019-11-17] MEDS: HYDROMORPHONE 1 MG/1 ML DISP.SYRIN IV PRN ×4 (02:56→21:24)
[2019-11-17 04:00] VITALS: BP 134/72
[2019-11-17] MEDS: MEROPENEM 500 MG in IV NS 0.9% 100 ML IV SCH ×2 (06:26→17:06)
[2019-11-17 07:12] LABS: CALCIUM, SERUM 7.3 mg/dL (8.5-10.1); CREATININE 0.6 mg/dL (0.6-1.3); MAGNESIUM 2.1 mg/dL (1.8-2.4); PHOSPHORUS 3.3 mg/dL (2.5-4.9); POTASSIUM 3.1 mmol/L (3.5-5.1)
[2019-11-17 07:19] LABS: FERRITIN 4471 ng/mL (8-388)
[2019-11-17 07:29] LABS: BASOPHILS # (AUTO) 0.1 /CMM (0.0-0.2); BASOPHILS % (AUTO) 0.5 % (0.0-2.0); EOSINOPHILS % (AUTO) 0.1 % (0.0-6.0); HEMATOCRIT 26 % (33-45); HEMOGLOBIN 9.5 g/dL (11.5-14.8); LYMPHOCYTES # (AUTO) 2.8 /CMM (0.8-4.8); LYMPHOCYTES % (AUTO) 17.8 % (20.0-44.0); MEAN CORPUSCULAR HGB CONC 36 g/dl (31.0-36.0); MEAN CORPUSCULAR VOLUME 95 fL (82-100); MONOCYTES # (AUTO) 0.4 /CMM (0.1-1.30); MONOCYTES % (AUTO) 2.7 % (2.0-12.0); NEUTROPHILS # (AUTO) 12.3 /CMM (1.8-8.9); NEUTROPHILS % (AUTO) 78.9 % (43.0-81.0); PLATELET COUNT (AUTO) 467 /CMM (150-450); RED BLOOD CELL COUNT(AUTO) 2.76 MIL/uL (4.0-5.2); WHITE BLOOD COUNT (AUTO) 15.6 K/uL (4.3-11.0)
[2019-11-17 07:37] LABS: IRON, SERUM 34 ug/dl (50-175); TOTAL IRON BINDING CAPACITY 153 ug/dl (250-450)
--- NOTE | 2019-11-17 07:45 | NUR ---
RN NOTE: Received patient in bed, awake, alert and verbally responsive. On O2 @l/min via NC saturating 97%. No facial grimacing noted at this time. HOB elevated. 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 (R) UA PICC line noted intact and patent with TPN bag #11 infusing and LIpids @ 20ml/hr. GT site noted draining greenish liquid output, (B) nephrostomy was noted draining well to gravity with yellow urine and the colostomy site was draining with serous color drainage. On [employer] 1st step mattress for skin management. Patient refused to be turned and repositioned at this time. Call light within reach. Needs anticipated.
[2019-11-17 08:00] VITALS: BP 138/89
[2019-11-17] MEDS: PANTOPRAZOLE 40 MG VIAL IV SCH (09:04)
[2019-11-17] MEDS: ENOXAPARIN SODIUM 60 MG/0.6 ML DISP.SYRIN SQ SCH ×2 (09:05→21:01)
[2019-11-17] MEDS: MUPIROCIN OINT 2% 22 GM TUBE SCH ×2 (09:15→20:58)
--- NOTE | 2019-11-17 10:14 | NUR ---
WOUND CARE CONSULT WOUND CARE RECEIVED CONSULT FOR LOWER ABDOMEN PUSTULES. WOUND CARE WILL DEFER CONSULT FOR THESE LESIONS TO PLASTIC SURGICAL TEAM FOR EVALUATION AND TREATMENT. WILL SEE PRN.
[2019-11-17] MEDS: POTASSIUM CL. PREMIX PERIPHER. 50 ML IV SCH ×4 (11:17→15:39)
[2019-11-17] MEDS ORDERED: TPN BAG #14 IV PRN ×8 (11:30)
[2019-11-17] MEDS ORDERED: TPN BAG #13 IV PRN ×6 (11:30)
[2019-11-17] MEDS ORDERED: LIDOCAINE 1%-EPI 1:100,000 20 ML VIAL TP STA (13:45)
--- NOTE | 2019-11-17 15:00 | NUR ---
RN NOTE: Kelvin, son was at the bedside and he was informed about the plan for serial debridement of the sacrum and biopsy of abdomen and thigh area to see if the skin lesions were cancerous. aubrie Warren agreed and signed the informed consent. Filed to patient's chart.
--- NOTE | 2019-11-17 15:45 | NUR ---
RN NOTE: BRITANY Quiles was at the bedside and performed the biopsy of the abdomen and thigh area and debrided the sacral area. Patient tolerated the procedure at the bedside. Patient was pre-medicated prior to the procedure.
[2019-11-17] MEDS: FENTANYL PATCH (100 MCG/HR) 100 MCG/HR PATCH.TD72 TD SCH (15:52)
[2019-11-17 16:00] VITALS: BP 121/75
[2019-11-17] MEDS: HYDROGEL DRESSING 90 GM TUBE TP SCH (16:32)
--- NOTE | 2019-11-17 18:10 | NUR ---
RN NOTE: Patient's (L) nephrostomy tube drained 150 ml of urine, (R) nephrostomy tube drained 250ml of urine, colostomy bag had a serous liquid out 50 ml and GT drainage was greenish in color with 950 ml output.
--- NOTE | 2019-11-17 19:22 | NUR ---
RN OPENING NOTE PATIENT ASLEEP IN BED. SON AT BEDSIDE. ON OXYGEN 2L VIA NC, TOLERATING WELL. NO SOB OR RESPIRATORY DISTRESS NOTED. IV SITE GEORGE PICC, SITE FLUSHING PATENT AND INTACT; ON TPN BAG #12 RUNNING AT 75ML/HR TOLERATING WELL. BILATERAL NEPHROSTOMY TUBE DRAINING WELL, GT IN PLACE AND CONNECTED TO DRAINAGE BAG VIA GRAVITY, DRAINING WELL. OSTOMY POUCH INTACT. SAFETY MEASURES MAINTAINED. BED IN LOW/LOCKED POSITION CALL LIGHT WITHIN REACH. WILL CONTINUE TO MONITOR.
--- NOTE | 2019-11-17 19:30 | NUR ---
RN NOTE: Bedside report was given to TRISTAN Nolan for continuity of care. Patient's son Kelvin was at the bedside. Lory John NP spoke with the patient and son Kelvin regarding the patient's NPO status, but patient was still noted sipping water, soda and juice at the bedside.
[2019-11-17 20:00] VITALS: BP 145/84
[2019-11-18] MEDS: BLOOD SUGAR DIAGNOSTIC 1 EACH STRIP IN SCH ×3 (00:15→12:00)
[2019-11-18] MEDS: INSULIN REGULAR, HUMAN 100 UNIT/ML 3 ML VIAL SQ PRN ×2 (01:21→06:12)
[2019-11-18] MEDS: MEROPENEM 500 MG in IV NS 0.9% 100 ML IV SCH (05:44)
[2019-11-18 06:29] LABS: BASOPHILS # (AUTO) 0.1 /CMM (0.0-0.2); BASOPHILS % (AUTO) 0.4 % (0.0-2.0); EOSINOPHILS % (AUTO) 0.4 % (0.0-6.0); HEMATOCRIT 28 % (33-45); HEMOGLOBIN 8.9 g/dL (11.5-14.8); LYMPHOCYTES # (AUTO) 0.7 /CMM (0.8-4.8); LYMPHOCYTES % (AUTO) 4.3 % (20.0-44.0); MEAN CORPUSCULAR HGB CONC 32 g/dl (31.0-36.0); MEAN CORPUSCULAR VOLUME 94 fL (82-100); MONOCYTES # (AUTO) 0.6 /CMM (0.1-1.30); MONOCYTES % (AUTO) 3.6 % (2.0-12.0); NEUTROPHILS # (AUTO) 14.2 /CMM (1.8-8.9); NEUTROPHILS % (AUTO) 91.3 % (43.0-81.0); PLATELET COUNT (AUTO) 386 /CMM (150-450); RED BLOOD CELL COUNT(AUTO) 2.97 MIL/uL (4.0-5.2); WHITE BLOOD COUNT (AUTO) 15.5 K/uL (4.3-11.0)
[2019-11-18 06:33] LABS: CALCIUM, SERUM 7.7 mg/dL (8.5-10.1); CREATININE 0.6 mg/dL (0.6-1.3); MAGNESIUM 2.1 mg/dL (1.8-2.4); PHOSPHORUS 3.1 mg/dL (2.5-4.9); POTASSIUM 3.2 mmol/L (3.5-5.1)
[2019-11-18] MEDS: HYDROMORPHONE 1 MG/1 ML DISP.SYRIN IV PRN ×3 (06:55→18:29)
--- NOTE | 2019-11-18 07:28 | NUR ---
RN CLOSING NOTE PATIENT ASLEEP IN BED. ON OXYGEN 2L VIA NC, TOLERATING WELL. NO SOB OR RESPIRATORY DISTRESS NOTED. IV SITE GEORGE PICC, SITE FLUSHING PATENT AND INTACT; ON TPN BAG #13 RUNNING AT 75ML/HR TOLERATING WELL. BILATERAL NEPHROSTOMY TUBE DRAINING WELL, GT IN PLACE AND CONNECTED TO DRAINAGE BAG VIA GRAVITY, DRAINING WELL. OSTOMY POUCH INTACT. SAFETY MEASURES MAINTAINED. BED IN LOW/LOCKED POSITION CALL LIGHT WITHIN REACH. WILL ENDORSE TO AM NURSE FOR DOMINGO
[2019-11-18 08:00] VITALS: BP 130/81
[2019-11-18] MEDS ORDERED: IV NS 0.9% 1,000 ML IV STA (08:41)
[2019-11-18] MEDS ORDERED: ENOX60DI SQ (08:46)
[2019-11-18] MEDS ORDERED: PROC10VI IM (08:46)
[2019-11-18] MEDS ORDERED: METO5VIA6 IV (08:46)
[2019-11-18] MEDS ORDERED: MERO500V21 IV (08:46)
[2019-11-18] MEDS ORDERED: TPN ADD IV (08:46)
[2019-11-18] MEDS: ENOXAPARIN SODIUM 60 MG/0.6 ML DISP.SYRIN SQ SCH (09:25)
[2019-11-18] MEDS: PANTOPRAZOLE 40 MG VIAL IV SCH (09:26)
[2019-11-18] MEDS: MUPIROCIN OINT 2% 22 GM TUBE SCH (09:29)
[2019-11-18] MEDS: HYDROGEL DRESSING 90 GM TUBE TP SCH (09:29)
[2019-11-18 10:00] VITALS: BP 130/81
--- NOTE | 2019-11-18 13:00 | NUR ---
very alert, talked today, appeared comfortable with FENTANYL patch 100mcg, applied on 11/14. did not ask for pain meds. continues with TPN , now taping down to 37 cc /hr, and in two hours 18.5 cc per hour, before turned it off prior to discharge back to [facility], report given to Sophie [phone]. Son already left today, but aware the patient's transfer.
[2019-11-18] MEDS: FAT EMULSION 20% 500 ML in PREMIX 1 EA IV SCH (14:00)
--- NOTE | 2019-11-18 16:45 | NUR ---
patient leaving with GEORGE picc line, triple lumen intact, for the continuation of abx MEROPENEM through 11/23, which explained in details Sophie, the one who took the report. sons would be follow the ambulance to [facility] with the patient
--- NOTE | 2019-11-18 18:32 | NUR ---
just now ambulance ready to crop picker the patient, son again approached to ask more pain meds for the patient, " at the SNF, they took their time, so my mother will be so much in pain, i want DILAUDID now for her. 1mg DILAUDID ivp given per son's request prior to departure.
== END 2019-11-18 18:42 | DRG 981 ==
LOC: ER 16:57 → ICU 21:11 → TELE-TD 11-11 00:30 → MEDSG1 11-11 16:49
PROVIDERS: ADMIT Student in an Organized Health Care Education/Training Program; ATTEND Registered Nurse
PROC: 02HV33Z Insertion of Infusion Device into Superior Vena Cava, Percutaneous Approach (ICD-10-PCS; 2019-11-08)
PROC: B548ZZA Ultrasonography of Superior Vena Cava, Guidance (ICD-10-PCS; 2019-11-08)
PROC: 0JPT3WZ Removal of Totally Implantable Vascular Access Device from Trunk Subcutaneous Tissue and Fascia, Percutaneous Approach (ICD-10-PCS; 2019-11-16)
PROC: 0KBP0ZZ Excision of Left Hip Muscle, Open Approach (ICD-10-PCS; principal; 2019-11-17)
PROC: 0KBN0ZZ Excision of Right Hip Muscle, Open Approach (ICD-10-PCS; 2019-11-17)
PROC: 0JB83ZX Excision of Abdomen Subcutaneous Tissue and Fascia, Percutaneous Approach, Diagnostic (ICD-10-PCS; 2019-11-17)
PROC: 0JBM3ZX Excision of Left Upper Leg Subcutaneous Tissue and Fascia, Percutaneous Approach, Diagnostic (ICD-10-PCS; 2019-11-17)
DX: T80.211A Bloodstream infection due to central venous catheter, initial encounter (principal); A41.9 Sepsis, unspecified organism; L89.154 Pressure ulcer of sacral region, stage 4; R65.21 Severe sepsis with septic shock; J15.6 Pneumonia due to other Gram-negative bacteria; G93.41 Metabolic encephalopathy; E43 Unspecified severe protein-calorie malnutrition; E87.1 Hypo-osmolality and hyponatremia; D68.69 Other thrombophilia; E87.2 Acidosis; C56.9 Malignant neoplasm of unspecified ovary; C78.80 Secondary malignant neoplasm of unspecified digestive organ; E27.40 Unspecified adrenocortical insufficiency; I82.492 Acute embolism and thrombosis of other specified deep vein of left lower extremity; I82.622 Acute embolism and thrombosis of deep veins of left upper extremity; J90 Pleural effusion, not elsewhere classified; N17.9 Acute kidney failure, unspecified; B96.20 Unspecified Escherichia coli [E. coli] as the cause of diseases classified elsewhere; R04.0 Epistaxis; Z86.718 Personal history of other venous thrombosis and embolism; E86.0 Dehydration; I10 Essential (primary) hypertension; Z93.3 Colostomy status; Z79.4 Long term (current) use of insulin; R74.0 Nonspecific elevation of levels of transaminase and lactic acid dehydrogenase [LDH]; E11.9 Type 2 diabetes mellitus without complications; F41.9 Anxiety disorder, unspecified; E88.09 Other disorders of plasma-protein metabolism, not elsewhere classified; Z68.20 Body mass index [BMI] 20.0-20.9, adult; Z93.6 Other artificial openings of urinary tract status; Z22.322 Carrier or suspected carrier of Methicillin resistant Staphylococcus aureus; Y84.8 Other medical procedures as the cause of abnormal reaction of the patient, or of later complication, without mention of misadventure at the time of the procedure; Y92.129 Unspecified place in nursing home as the place of occurrence of the external cause; Z90.710 Acquired absence of both cervix and uterus; Z92.21 Personal history of antineoplastic chemotherapy; E87.6 Hypokalemia; D63.8 Anemia in other chronic diseases classified elsewhere; L08.9 Local infection of the skin and subcutaneous tissue, unspecified; R19.00 Intra-abdominal and pelvic swelling, mass and lump, unspecified site; R22.9 Localized swelling, mass and lump, unspecified; D63.0 Anemia in neoplastic disease; G89.3 Neoplasm related pain (acute) (chronic); R13.10 Dysphagia, unspecified; Z91.19 Patient's noncompliance with other medical treatment and regimen
CPT/HCPCS: 36415; 36569; 36600; 71045-TC; 74018; 80048-TC; 80053-TC; 80061-TC; 80076-TC; 80202-TC; 81000-TC; 82533; 82728-TC; 82962-TC; 83540-TC; 83605-TC; 83735-TC; 84100-TC; 84443-TC; 84478-TC; 84484-TC; 85025-TC; 85730-TC; 86304; 87040-TC; 87070-TC; 87081-TC; 87086-TC; 87186-TC; 88300-TC; 88305-TC; 88341; 88342; 92611-TC; 93971-TC; A4216; A6248; A6402; A9563; C1751; C9113; G0378; J0780; J1170; J1650; J1720; J1815; J2185; J2405; J2704; J3370; J3475; J3480; J3490; J7030; J7050; J7060

== ENCOUNTER 2019-11-22 20:14 | Inpatient (IN) | payer MEDICARE, MEDICAID ==
[~2019-11-22] VITALS: Ht 167.6 cm; Wt 62.6 kg
[~2019-11-22 20:14] MED LIST: ACET-2605 GT; ACET325T53 GT; AMIN887L PO; ASCO500T20 GT; CRAN3875 GT; ENOX60DI SQ; FENT1PAT5 TD; HYDROMORPHONE PO; INSU100V42; MERO500V21 IV; METO5VIA6 IV; MULT-439 PO; NALO1DIS2 IJ; NUTR1PAC14 PO; OCTR200V2 IJ; ONDA8TAB13 PO; PANT40TA4 PO; PAPA1TAB10 PO; PROC10TA13 PO; PROC10VI IM; SCOP1PAT11 TD; TPN ADD IV; [UNRECOGNIZED DRUG - CODE] IV
--- NOTE | 2019-11-22 20:20 | NUR ---
[id number] FROM [facility] C/O GEN WEAKNESS AND O2 DESAT 88% ROOM AIR RECENT DX UTI, PT AWAKE, ALERT, PLACED ON MONITOR, +PICC LINE, +BILAT NEPHROSTOMY TUBES, +UROSTOMY, +COLOSTOMY. DR TRAMMELL AT BEDSIDE FOR EVAL
[2019-11-22 20:48] LABS: BASOPHILS # (AUTO) 0.1 /CMM (0.0-0.2); HEMATOCRIT 29 % (33-45); HEMOGLOBIN 9.2 g/dL (11.5-14.8)
[2019-11-22 20:52] LABS: BASOPHILS % (AUTO) 0.5 % (0.0-2.0); LYMPHOCYTES # (AUTO) 0.9 /CMM (0.8-4.8); LYMPHOCYTES % (AUTO) 5.7 % (20.0-44.0); MEAN CORPUSCULAR HGB CONC 31 g/dl (31.0-36.0); MEAN CORPUSCULAR VOLUME 95 fL (82-100); MONOCYTES # (AUTO) 0.6 /CMM (0.1-1.30); NEUTROPHILS # (AUTO) 14.5 /CMM (1.8-8.9); NEUTROPHILS % (AUTO) 89.8 % (43.0-81.0); PLATELET COUNT (AUTO) 490 /CMM (150-450); RED BLOOD CELL COUNT(AUTO) 3.08 MIL/uL (4.0-5.2); WHITE BLOOD COUNT (AUTO) 16.2 K/uL (4.3-11.0)
[2019-11-22 21:09] LABS: BILIRUBIN,URINE MODERATE (NEGATIVE); BLOOD, URINE Large Ery/uL (NEGATIVE); KETONES,URINE Negative (NEGATIVE); LEUKOCYTE ESTERASE ,URINE Small (NEGATIVE); NITRITE, URINE Negative (NEGATIVE); PROTEIN,URINE 100 mg/dl (NEGATIVE); UGLUCOSE Negative (NEGATIVE); UROBILINOGEN,URINE 0.2 EU/dL (0.2)
[2019-11-22 21:15] LABS: APPEARANCE,URINE SLIGHTLY CLOUDY (CLEAR); COLOR,URINE DARK YELLOW (YELLOW)
[2019-11-22] MEDS ORDERED: VANCOMYCIN 1 GM VIAL ONE (21:15)
[2019-11-22] MEDS ORDERED: PROCHLORPERAZINE EDISYLATE 10 MG/2 ML VIAL ONE (21:15)
[2019-11-22] MEDS ORDERED: MEROPENEM 1 G VIAL IV ONE (21:15)
[2019-11-22 21:18] LABS: BACTERIA,URINE Many /HPF (None Seen); RBC,URINE 21-50 /HPF (0-2); SQUAMOUS EPITHELIAL CELL,UR Few /HPF (None Seen); YEAST,URINE Many /HPF (None Seen)
[2019-11-22 21:21] LABS: ALANINE AMINOTRANSFERASE 94 U/L (12-78); ALKALINE PHOSPHATASE 423 U/L (46-116); ASPARTATE AMINOTRANSFERASE 77 U/L (15-37); BILIRUBIN,DIRECT 3.1 mg/dL (0.0-0.2); BILIRUBIN,TOTAL 3.8 mg/dL (0.2-1.0); CALCIUM, SERUM 8.1 mg/dL (8.5-10.1); CARBON DIOXIDE 31 mmol/L (21-32); CHLORIDE 107 mmol/L (98-107); CREATININE 1.2 mg/dL (0.6-1.3); GLUCOSE 129 mg/dL (74-106); SODIUM SERUM 149 mmol/L (136-145); TOTAL PROTEIN, SERUM 6.2 g/dL (6.4-8.2)
[2019-11-22 21:26] LABS: ALBUMIN 1.1 g/dL (3.4-5.0); UREA NITROGEN, BLOOD 85 mg/dL (7-18)
[2019-11-22 21:29] LABS: LYMPHOCYTES % (MANUAL) 6 % (16-48); MONOCYTES % (MANUAL) 4 % (0-11.0); NEUTROPHILS % (MANUAL) 90 (42-76)
[2019-11-22] MEDS ORDERED: VANCOMYCIN 1 GM in IV D5W 250 ML IV ONE (21:30)
[2019-11-22] MEDS ORDERED: PROCHLORPERAZINE EDISYLATE 10 MG/2 ML VIAL IVP ONE (21:30)
[2019-11-22] MEDS ORDERED: IV NS 0.9% 1,000 ML BAG IV ONE (21:30)
[2019-11-22] MEDS ORDERED: MEROPENEM 1,000 MG in IV NS 0.9% 100 ML IV ONE (21:30)
[2019-11-22] MEDS ORDERED: HYDR4TAB4 GT (22:38)
[2019-11-22] MEDS ORDERED: METO10SY IV (22:38)
[2019-11-22] MEDS ORDERED: SIME120L GT (22:38)
[2019-11-22] MEDS ORDERED: DOCU-141 GT (22:38)
[2019-11-22] MEDS ORDERED: ENOX60DI SQ (22:38)
--- NOTE | 2019-11-22 22:41 | NUR ---
REPORT GIVEN TO DELPHINE HUDSON FOR DOMINGO; PT WILL BE TRANSPORTED TO 3RD FLOOR
[2019-11-22 22:50] VITALS: BP 103/62
[2019-11-22 22:55] VITALS: BP 103/62
[2019-11-22 23:00] VITALS: BP 103/62
[2019-11-23] VITALS (7 sets, daily range): BP systolic 90–104; BP diastolic 52–63
[2019-11-23] MEDS ORDERED: Z GUARD REMEDY 2 OZ OINT TP PRN
[2019-11-23] MEDS ORDERED: HYDROCODONE/APAP 5/325MG 1 EACH TABLET PO PRN
[2019-11-23] MEDS ORDERED: ACETAMINOPHEN 650 MG/SUPP.RECT RC PRN
--- NOTE | 2019-11-23 | NUR ---
RN NOTES RECEIVED PATIENT FROM ED, DX SEVERE SEPSIS, GI BLEED, UTI, HCAP, ALERT AND ORIENTED X3, ON 4LPM VIA NC, SPO2 91%, LUNG SOUNDS WET, GURGLING, VOMITING BROWN, METALLIC SMELLING EMESIS, BILATERAL NEPHROSTOMY, SUTURED, DRAINING DEEPAK COLORED URINE, GT TUBE DRAINING VIA URIAS BAG WITH GREENISH AND BROWN DRAINAGE, COLOSTOMY CHANGED, STOMA IS EXCORIATED, UNDEFINED STOMA, WITH 2 SMALL MEGGAN OUTSIDE STOMA, STOOL IS YELLOWISH LIQUID, NO ODOR, SACRAL WOUND, LEFT ARM EDEMA, BILATERAL FOOT EDEMA, BILATERAL HIP AND THIGH WITH MULTIPLE VESICLES, SKIN IS HARD AND RIGID DUE TO GENERALIZED EDEMA, MG AND POTASSIUM BEING REPLACED.
--- NOTE | 2019-11-23 00:17 | NUR ---
RN NOTES NOTIFIED SURVEYOR HELPER JULIANNE OF LACTIC ACID OF 3.0, NO NEW ORDER
[2019-11-23] MEDS ORDERED: DEXTROSE 50%-WATER 50 ML DISP.SYRIN IV PRN (00:30)
[2019-11-23] MEDS: IV D5W 1,000 ML IV PRN ×2 (00:40→15:16)
[2019-11-23] MEDS: Magnesium 1GM/D5W 100ML PREMIX 100 ML IV SCH ×2 (00:47→01:56)
[2019-11-23] MEDS: POTASSIUM CL. PREMIX PERIPHER. 50 ML IV SCH ×4 (00:59→04:02)
[2019-11-23] MEDS: ONDANSETRON HCL/PF 4 MG/2 ML VIAL IVP PRN ×2 (01:54→16:09)
--- NOTE | 2019-11-23 04:50 | NUR ---
RN NOTES NOTIFIED CHEESE TESTER JULIANNE, PATIENT VOMITING BLOOD SINCE ADMISSION, IF HGB < 7, TRANSFUSE PRBC 1 UNIT
[2019-11-23 06:24] LABS: BASOPHILS % (AUTO) 0.1 % (0.0-2.0); HEMATOCRIT 27 % (33-45); HEMOGLOBIN 8.3 g/dL (11.5-14.8); LYMPHOCYTES # (AUTO) 0.7 /CMM (0.8-4.8); LYMPHOCYTES % (AUTO) 4.9 % (20.0-44.0); MEAN CORPUSCULAR HGB CONC 31 g/dl (31.0-36.0); MEAN CORPUSCULAR VOLUME 95 fL (82-100); MONOCYTES # (AUTO) 0.6 /CMM (0.1-1.30); MONOCYTES % (AUTO) 4.1 % (2.0-12.0); NEUTROPHILS # (AUTO) 13.2 /CMM (1.8-8.9); NEUTROPHILS % (AUTO) 90.9 % (43.0-81.0); PLATELET COUNT (AUTO) 431 /CMM (150-450); RED BLOOD CELL COUNT(AUTO) 2.79 MIL/uL (4.0-5.2); WHITE BLOOD COUNT (AUTO) 14.5 K/uL (4.3-11.0)
[2019-11-23] MEDS: BLOOD SUGAR DIAGNOSTIC 1 EACH STRIP IN SCH ×3 (06:45→17:41)
[2019-11-23 06:48] LABS: THYROID STIMULATING HORMONE 3.753 uIU/mL (0.358-3.74)
--- NOTE | 2019-11-23 07:20 | NUR ---
ALERT AND ORIENTED X3, 4LPM VIA NC, TACHYCARDIA, AFEBRILE, GIVEN TYLENOL X1 FOR TEMP OF 99.1F, LOW BP, ACTIVELY VOMITING BLOOD TINGED EMESIS, IF HGB FALLS TO < 7.0, THERE IS A STANDING ORDER FOR BLOOD TRANSFUSION, COLOSTOMY DRAINING, NEPHROSTOMY DRAINING DEEPAK COLORED URINE, ENDORSED NEEDS TO AM NURSE FOR CONTINUITY OF CARE.
--- NOTE | 2019-11-23 07:20 | NUR ---
COMMUNICATIONS OPERATOR OPENING NOTES RECEIVED PT IN BED, AWAKE, A/O X3-4. PT ON SUPPLEMENTARY OXYGEN AT 4L VIA NC SATURATION OF 94%, WITH NO ACUTE RESPIRATORY DISTRESS NOTED. PT DENIES ANY PAIN OR DISCOMFORT AT THIS TIME. PT DENIES ANY CONCERNS OR QUESTIONS AT THE MOMENT WELL. PT HAS COLOSTOMY BAG IN PLACE WITH NO SIGNS OF BLEEDING AND GT FOR DRAINAGE WITH DARK RED IN COLOR. 2 NEPHROSTOMY BAG NOTED WELL RIGHT AND LEFT, BOTH WITH YELLOWISH TO PINK OUTPUT, PER NIGHT NURSE LEFT IS DRAINING LESS THAN THE RIGHT. PT HAS TRIPLE LUMEN PICC TO GEORGE, ON GOING D5W AT 75 ML/HR AND LAST BAG OF POTASSIUM REPLACEMENT BY NIGHT NURSE. PT KEPT COMFORTABLE IN BED. CALL LIGHT KEPT WITHIN REACH. PT'S BED IN LOWEST LOCKED POSITION WITH SR X3. WILL CONTINUE PLAN OF CARE.
[2019-11-23] MEDS ORDERED: FEE PK DOSING 1 MIN EA MC ONE (07:26)
--- NOTE | 2019-11-23 07:30 | NUR ---
TROUBLE LOCATER NOTES RECEIVED CALL FROM LAB REGARDING 8.1 POTASSIUM, RN REQUESTED FOR REDRAW, PT JUST HAD 40MEQS TOTAL POTASSIUM REPLACEMENT LAST NIGHT, LEVEL FROM 3.08. AWAITING FOR RWDRAW RESULT. WILL NOTIFY HOSPITALIST.
--- NOTE | 2019-11-23 07:31 | NUR ---
CHILLER HAND NOTES STOPPED LAST BAG OF POTASSIUM INFUSING FROM NIGHT NURSE, AWAITING FOR RE DRAWING THE BMP. PT MADE AWARE.
[2019-11-23] MEDS ORDERED: MEROPENEM 500 MG in IV NS 0.9% 50 ML IV SCH (09:00)
[2019-11-23] MEDS: MEROPENEM 500 MG in IV NS 0.9% 100 ML IV SCH ×2 (09:04→21:05)
[2019-11-23 09:17] LABS: BILIRUBIN,TOTAL 3.9 mg/dL (0.2-1.0); CALCIUM, SERUM 7.7 mg/dL (8.5-10.1); CREATININE 1.2 mg/dL (0.6-1.3); PHOSPHORUS 4.9 mg/dL (2.5-4.9); POTASSIUM 3.6 mmol/L (3.5-5.1); TOTAL PROTEIN, SERUM 5.7 g/dL (6.4-8.2)
--- NOTE | 2019-11-23 09:30 | NUR ---
CHEMICAL ETCHING PROCESSOR NOTES BMP REDRAWN,RESULTS CAME BACK. INFORMED MD/SK REGARDING BUN OF 82 AND ALBUMIN OF 1.0 AWAITING FOR RESPONSE. WILL CONTINUE TO MONITOR PT. RESTARTED THE LAST BAG OF POTASSIUM FROM LAST NIGHT. CURRENT POTASSIUM LEVL IS 3.6. AWAITING FOR RESPONSE.
--- NOTE | 2019-11-23 09:41 | NUR ---
PIPE ROLLER NOTES SPOKE TO MD/SK PRESENT IN THE UNIT REGARDING CURRENT LABS. NO NEW ORDERS STATED. RN NOTED WELL. WILL CONTINUE TO MONITOR PT.
[2019-11-23] MEDS ORDERED: VANCOMYCIN 0.75 GM in IV NS 0.9% 250 ML IV SCH (11:00)
[2019-11-23] MEDS ORDERED: VANCOMYCIN 0.75 GM in IV D5W 250 ML IV SCH (12:11)
--- NOTE | 2019-11-23 13:03 | NUR ---
MS RN NOTES RECEIVED ORDER FROM SK, FOR SR. MERCHANDISE PLANNER CONSULT FOR TPN USE. AND PER MD/MARYLU, SHE CONTACTED DR PHAM PERSONALLY FOR GI CONSULT. SON PRESENT AT BEDSIDE MADE AWARE OF PLAN.
[2019-11-23] MEDS ORDERED: MORPHINE SULFATE INJ 2 MG/ML DISP.SYRIN IV PRN (15:00)
[2019-11-23] MEDS ORDERED: METOCLOPRAMIDE HCL 10 MG/2 ML VIAL IV SCH (16:30)
[2019-11-23 16:59] LABS: BASOPHILS % (AUTO) 0.3 % (0.0-2.0); HEMATOCRIT 27 % (33-45); HEMOGLOBIN 8.7 g/dL (11.5-14.8); LYMPHOCYTES % (AUTO) 6.2 % (20.0-44.0); MEAN CORPUSCULAR HGB CONC 32 g/dl (31.0-36.0); MEAN CORPUSCULAR VOLUME 95 fL (82-100); MONOCYTES # (AUTO) 0.5 /CMM (0.1-1.30); MONOCYTES % (AUTO) 3.3 % (2.0-12.0); NEUTROPHILS # (AUTO) 14.8 /CMM (1.8-8.9); NEUTROPHILS % (AUTO) 90.2 % (43.0-81.0); PLATELET COUNT (AUTO) 440 /CMM (150-450); RED BLOOD CELL COUNT(AUTO) 2.89 MIL/uL (4.0-5.2); WHITE BLOOD COUNT (AUTO) 16.4 K/uL (4.3-11.0)
[2019-11-23] MEDS: PANTOPRAZOLE 40 MG VIAL IV SCH (17:33)
[2019-11-23] MEDS: HYDROGEL DRESSING 90 GM TUBE TP SCH (18:30)
--- NOTE | 2019-11-23 19:00 | NUR ---
MS RN NOTES RECEIVED CALL FROM DR PHAM REGARDING PT'S SCHEDULE FOR TOMORROW FOR EGD AT 6AM. CONSENTS SIGNED BY SON AT BEDSIDE WITH PT'S PERMISSION. PER PT IS VERY WEAK TO SIGN. CN/NB MADE AWARE OF THE SITUATION WELL.
--- NOTE | 2019-11-23 19:28 | NUR ---
MS RN CLOSING NOTES PT REMAINS IN BED, INTERMITTENTLY DOZING OFF, A/O X3-4. PT ON SUPPLEMENTARY OXYGEN AT 4L VIA NC SATURATION OF 92-93%, WITH NO ACUTE RESPIRATORY DISTRESS NOTED. SON/LAVERN AT BEDSIDE. PT DENIES ANY PAIN OR DISCOMFORT AT THIS TIME.PT HAS COLOSTOMY BAG IN PLACE WITH NO SIGNS OF BLEEDING. GT FOR DRAINAGE WITH DARK RED IN COLOR, OUTPUT OF 250ML. (2) NEPHROSTOMY BAG NOTED WELL, RIGHT HAS OUTPUT OF 250ML AND LEFT HAS 50ML, BOTH WITH YELLOWISH TO PINK OUTPUT. PT HAS TRIPLE LUMEN PICC TO GEORGE, ON GOING D5W AT 75 ML/HR INTACT AND OPERATIONAL. PT KEPT COMFORTABLE IN BED. ALL NEEDS AND CARE ATTENDED AND PROVIDED. CALL LIGHT KEPT WITHIN REACH. PT'S BED IN LOWEST LOCKED POSITION WITH SR X3. WILL ENDORSED TO INCOMING NIGHT NURSE FOR DOMINGO.
[2019-11-23] MEDS ORDERED: FLUCONAZOLE IN NS 100 ML IV ONE (22:17)
[2019-11-23] MEDS: FLUCONAZOLE IN NS 100 MG in PREMIX 1 EA IV SCH ×2 (22:32)
[2019-11-24] VITALS (33 sets, daily range): BP systolic 76–139; BP diastolic 36–80
[2019-11-24] MEDS: BLOOD SUGAR DIAGNOSTIC 1 EACH STRIP IN SCH ×5 (00:27→23:27)
[2019-11-24] MEDS: VANCOMYCIN 0.75 GM in IV D5W 250 ML IV SCH ×2 (00:27→11:00)
[2019-11-24] MEDS: IV D5W 1,000 ML IV PRN ×3 (05:07→23:19)
[2019-11-24] MEDS: PANTOPRAZOLE 40 MG VIAL IV SCH ×2 (05:07→16:12)
--- NOTE | 2019-11-24 05:15 | NUR ---
MS RN NOTES PT STATES "I'M NOT NOT FEELING WELL" PER SON. VITALS CHECKED. BP 80/43 HR 114. RECHECKED BP 76/44, HR 114. REPOSITIONED PT TO [place]. NOTIFIED LUKE WHITAKER CRANK HAND FOR [facility]. CADET DECK MADE AWARE RE PT'S CONDITION. WITH NEW ORDERS MADE. ORDERS NOTED AND CARRIED OUT. WILL CONTINUE TO MONITOR.
[2019-11-24] MEDS ORDERED: IV NS 0.9% 1,000 ML BAG IV ONE (05:30)
--- NOTE | 2019-11-24 06:10 | NUR ---
MS RN NOTES DR PHAM CAME IN TO SEE PT. NOTIFIED HIM RE PT'S BP. NO NEW ORDERS AT THIS TIME. WILL CONTINUE TO MONITOR.
--- NOTE | 2019-11-24 06:30 | NUR ---
MS RN NOTES AWAKE & RESPONSIVE. NOT IN ANY DISTRESS. NO SOB NOTED. DENIES ANY PAIN OR DISCOMFORT AT THIS TIME. WITH IVF INFUSING WELL. AM CARE DONE. MONITORED ACCORDINGLY. CALL LIGHT WITHIN REACH. BED IN LOWEST POSITION. SR UP X 3 WITH BED ALARM ON FOR SAFETY. WILL ENDORSE TO NEXT SHIFT.
--- NOTE | 2019-11-24 06:50 | NUR ---
MS RN NOTES PT TAKEN TO OR FOR EGD WITH DR PHAM. REPORT GIVEN TO NOVELTY PRINTING MACHINE OPERATOR FOR CONTINUITY OF CARE.
--- NOTE | 2019-11-24 06:55 | NUR ---
WOUND CARE CONSULT WOUND CARE RECEIVED CONSULT FOR GENERALIZED VESICLES/PAPULES AND SACRAL PRESSURE ULCER. WOUND CARE WILL DEFER CONSULT AND TREATMENT PLANS TO PLASTIC SURGICAL TEAM WHO ARE CURRENTLY FOLLOWING THIS PATIENT. PATIENT WITH DIXON AT 10, ALL PRESSURE ULCER PREVENTION MEASURES ARE NOTED TO BE IN PLACE. ISOFLEX LOW AIRLOSS SPECIALTY BED TO BE PLACED WHEN AVAILABLE, IS ON ORDER. WILL SEE PRN.
[2019-11-24 06:58] LABS: BASOPHILS % (AUTO) 0.2 % (0.0-2.0); EOSINOPHILS % (AUTO) 0.1 % (0.0-6.0); HEMATOCRIT 23 % (33-45); HEMOGLOBIN 7.2 g/dL (11.5-14.8); LYMPHOCYTES # (AUTO) 0.6 /CMM (0.8-4.8); LYMPHOCYTES % (AUTO) 5.1 % (20.0-44.0); MEAN CORPUSCULAR HGB CONC 32 g/dl (31.0-36.0); MEAN CORPUSCULAR VOLUME 95 fL (82-100); MONOCYTES # (AUTO) 0.5 /CMM (0.1-1.30); MONOCYTES % (AUTO) 4.1 % (2.0-12.0); NEUTROPHILS % (AUTO) 90.5 % (43.0-81.0); PLATELET COUNT (AUTO) 310 /CMM (150-450); RED BLOOD CELL COUNT(AUTO) 2.41 MIL/uL (4.0-5.2); WHITE BLOOD COUNT (AUTO) 12.1 K/uL (4.3-11.0)
--- NOTE | 2019-11-24 07:10 | NUR ---
PATIENT TRANSFERRED FROM GI-LAB. PER ANESTHESIOLOGIST, DR ELMORE, PATIENT DESATING 70'S PRIOR TO PROCEDURE. NO ANAESTHESIA GIVEN PER MD. PATIENT ON 100 % NRBM UPON TRANSFER. APPEARS LETHARGIC BUT EASILY AROUSABLE TO NAME. PLACED ON MOPNITOR-ST 100'S. SBP 80'S. SPO2 94%. KEPT HOB ELEVATED. STAT ABG/CXR ORDERED. PULMO CONSULT DONE BY DR. ELMORE.
[2019-11-24 07:27] LABS: CALCIUM, SERUM 6.9 mg/dL (8.5-10.1); CREATININE 1.4 mg/dL (0.6-1.3); MAGNESIUM 2.4 mg/dL (1.8-2.4); PHOSPHORUS 5.1 mg/dL (2.5-4.9)
[2019-11-24 07:33] LABS: POTASSIUM 2.7 mmol/L (3.5-5.1)
[2019-11-24 07:37] LABS: ABG OXYGEN SATURATION 92.4 % (92.0-98.5); ABG PCO2 39.4 mmHg (35.0-45.0); ABG PH 7.469 (7.350-7.450); ABG PO2 68.3 mmHg (75.0-100.0); AaDO2 605.3 mmHg; MetHb 0.7 % (0.0-1.5); O2Hb 91.8 % (94.0-97.0); SITE, ABG Right Radial; VENT MODE, BG NRB 100%
[2019-11-24 07:53] LABS: BILIRUBIN,TOTAL 3.5 mg/dL (0.2-1.0); TOTAL PROTEIN, SERUM 4.9 g/dL (6.4-8.2)
[2019-11-24 07:55] LABS: ALBUMIN 0.8 g/dL (3.4-5.0)
[2019-11-24] MEDS: MEROPENEM 500 MG in IV NS 0.9% 100 ML IV SCH ×2 (08:45→22:55)
--- NOTE | 2019-11-24 09:45 | NUR ---
K-2.7. DR. JSOE KELLEY.
--- NOTE | 2019-11-24 10:00 | NUR ---
DR. GARCIA SPOKE TO PATIENT'S SON REGARDING CONDITION AND CODE STATUS. FAMILY WISHES DNR/DNI AT THIS TIME.
[2019-11-24] MEDS: HYDROGEL DRESSING 90 GM TUBE TP SCH (10:58)
--- NOTE | 2019-11-24 11:00 | NUR ---
RN NOTE: Called and spoke with lulu Fleming regarding the Vancomycin trough result 26. Per lulu Fleming hold the dose right now.
[2019-11-24] MEDS: HYDROMORPHONE 1 MG/1 ML DISP.SYRIN IV PRN ×2 (11:08→16:13)
[2019-11-24] MEDS: POTASSIUM CL. PREMIX PERIPHER. 50 ML IV SCH ×8 (11:27→22:58)
--- NOTE | 2019-11-24 13:29 | NUR ---
RN NOTE: Dr. Carlson was made aware about the patient's episode of having a low blood pressure with SBP 88-89, but MAP was still above 65. Patient received a Dilaudid after the (R) lung thoracentesis procedure. Awaiting for MD's response. Kelvin son was at the bedside and was informed that MD was already paged about the BP concern and the TPN request of the son, Kelvin.
--- NOTE | 2019-11-24 14:08 | NUR ---
RN NOTE: Received a Levophed order from Dr. Carlson and no response yet for the TPN request of the son, Kelvin. Will follow-up with .
--- NOTE | 2019-11-24 17:56 | NUR ---
RN NOTE: Dr. Carlson was informed about the TPN for the patient, and per MD she wanted to hold the TPN for now due to the (B) pleural effusion of the patient. Per MD, she wanted to see again the chest X-ray for tomorrow and will evaluate if TPN is ok to be started by tomorrow. Explained this to the patient's son, Kelvin and he understood the explanation from the MD.
--- NOTE | 2019-11-24 18:00 | NUR ---
RN NOTE: Patient's (L) nephrostomy tube has 5 ml of urine output, (R) nephrostomy have 100 ml urine output, colostomy bag was drained with 200 ml of liquid stool, and gastric drainage was noted with 200 ml of greenish mucoid discharge. Dr. Carlson about the less urine output noted on the (L) nephrostomy tube.
--- NOTE | 2019-11-24 19:36 | NUR ---
RN NOTE: Bedside report was given to TRISTAN Lyn for continuity of care. Patient was still infusing her potassium bag. Endorsed to TRISTAN Lyn about it. Patient remained on NPO status.
[2019-11-24] MEDS ORDERED: VANCOMYCIN 0.75 GM in IV D5W 250 ML IV SCH (23:00)
[2019-11-24] MEDS: FLUCONAZOLE IN NS 100 MG in PREMIX 1 EA IV SCH ×2 (23:07)
[2019-11-24] MEDS: INSULIN REGULAR, HUMAN 100 UNIT/ML 3 ML VIAL SQ PRN (23:28)
[2019-11-25] VITALS (43 sets, daily range): BP systolic 45–145; BP diastolic 33–84
[2019-11-25 04:30] LABS: BASOPHILS % (AUTO) 0.2 % (0.0-2.0); EOSINOPHILS % (AUTO) 0.1 % (0.0-6.0); HEMATOCRIT 25 % (33-45); HEMOGLOBIN 7.7 g/dL (11.5-14.8); LYMPHOCYTES # (AUTO) 0.7 /CMM (0.8-4.8); LYMPHOCYTES % (AUTO) 5.5 % (20.0-44.0); MEAN CORPUSCULAR HGB CONC 31 g/dl (31.0-36.0); MEAN CORPUSCULAR VOLUME 95 fL (82-100); MONOCYTES # (AUTO) 0.3 /CMM (0.1-1.30); MONOCYTES % (AUTO) 2.2 % (2.0-12.0); PLATELET COUNT (AUTO) 346 /CMM (150-450)
[2019-11-25 04:47] LABS: CALCIUM, SERUM 7.2 mg/dL (8.5-10.1); CREATININE 1.5 mg/dL (0.6-1.3); MAGNESIUM 2.4 mg/dL (1.8-2.4); PHOSPHORUS 5.6 mg/dL (2.5-4.9); POTASSIUM 3.8 mmol/L (3.5-5.1)
[2019-11-25] MEDS: PANTOPRAZOLE 40 MG VIAL IV SCH ×2 (05:26→17:27)
[2019-11-25] MEDS: BLOOD SUGAR DIAGNOSTIC 1 EACH STRIP IN SCH ×3 (05:35→17:27)
[2019-11-25] MEDS: INSULIN REGULAR, HUMAN 100 UNIT/ML 3 ML VIAL SQ PRN (05:36)
--- NOTE | 2019-11-25 05:37 | NUR ---
rn notes no significant change of condition. in bed resting comfortably. vitlal signs wnl. no distress noted, breathing even and unlabored. on nocturnal bipap tolerated well. no complaint of pain or discomfort. alert and oriented. verbally able to communicate needs.kept clean and dry/ will endorse to next shif for continuity of care. Addendum: 11/25/19 at 0542 by KIMMIE HOLLAND RN Patient does not have nocturnal bibap. it was for the other patient
--- NOTE | 2019-11-25 05:40 | NUR ---
rn notes no significant change of condition. in bed resting comfortably. vitlal signs wnl. no distress noted, breathing even and unlabored. on . no complaint of pain or discomfort. alert and oriented. verbally able to communicate needs. kept clean and dry/ will endorse to next shif for continuity of care.
--- NOTE | 2019-11-25 06:42 | NUR ---
RT NOTE PT FOUND ON 100% NONREBREATHER MASK @ 15L. NO DISTRESS NOTED. RN KIMMIE AWARE.
[2019-11-25] MEDS: MEROPENEM 500 MG in IV NS 0.9% 100 ML IV SCH (08:29)
[2019-11-25] MEDS: HYDROGEL DRESSING 90 GM TUBE TP SCH (08:30)
--- NOTE | 2019-11-25 09:01 | NUR ---
ICU/NOTES PATIENT SEEN AND EVALUATED BY DR. GARCIA WITH NO NEW ORDERS AT THIS TIME.
--- NOTE | 2019-11-25 09:02 | NUR ---
ICU/RN NOTES PATIENT SEEN AND EVALUATED BY DR. HERNANDEZ. PATIENT WITH O2 SAT CURRENTLY OF 82%. PATIENT ON NASAL CANNULA AND NON-REBREATHER. WILL CONTINUE TO MONITOR CLOSELY.
--- NOTE | 2019-11-25 09:30 | NUR ---
ICU/RN NOTES LEFT LUNG THORACENTESIS WAS DONE BY DR. HUERTA AT BEDSIDE. PATIENT WAS ABLE TO TOLERATE THE PROCEDURE WELL. ABOUT 1450CC WAS TAKEN OUT AND WAS SENT TO LAB. PATIENT CONTINUES TO REMAIN IN STABLE CONDITION. WILL CONTINUE TO MONITOR CLOSELY.
[2019-11-25] MEDS: IV D5W 1,000 ML IV PRN (12:56)
--- NOTE | 2019-11-25 13:29 | NUR ---
ICU/RN NOTES INFORMED DR. GARCIA REGARDING THE LEFT NEPHROSTOMY TUBE WITH LESS DRAINAGE THAN THE RIGHT. PER DR. GARCIA, SHE WILL LET DR. PARKER KNOW AND TO ORDER US RENAL. ALL ORDERS NOTED AND CARRIED OUT. WILL CONTINUE TO MONITOR CLOSELY.
--- NOTE | 2019-11-25 14:13 | NUR ---
ICU/RN NOTES AWAITING FOR IR ORDER FROM DR. GARCIA. CHARGE NURSE AWARE. PATIENT CONTINUES TO BE IN STABLE CONDITION. WILL CONTINUE TO MONITOR CLOSELY.
[2019-11-25] MEDS: PROCHLORPERAZINE EDISYLATE 10 MG/2 ML VIAL IVP PRN ×2 (15:00→21:07)
--- NOTE | 2019-11-25 16:18 | NUR ---
PT PLACED OFF BIPAP ON TO NRB MASK. TOLERATING WELL AT THIS TIME. BIPAP NEEDED PER DR HERNANDEZ.
--- NOTE | 2019-11-25 17:20 | NUR ---
ICU/RN NOTES RECEIVED AN ORDER FROM DR. GARCIA FOR A BILATERAL NEPHROSTOGRAM. ALL ORDERS NOTED AND CARRIED OUT. WILL CONTINUE TO MONITOR CLOSELY.
--- NOTE | 2019-11-25 19:06 | NUR ---
ICU/RN CLOSING NOTES PATIENT CONTINUES TO REMAIN IN STABLE CONDITION THROUGHOUT THE SHIFT. PROVIDED COMFORT AND SAFETY. PATIENT ABLE TO TOLERATE MEDS VIA IV. NO ADVERSE REACTIONS AT THIS TIME. IV INTACT AND PATENT. FLUSHING WELL. ALL NEEDS ANTICIPATED. CALL LIGHT WITHIN REACHED. BED LOCKED AND IN LOWEST POSITION. SAFETY MAINTAINED. WILL CONTINUE TO MONITOR. ENDORSED TO PM NURSE FOR DOMINGO.
--- NOTE | 2019-11-25 19:34 | NUR ---
PATIENT RECEIVED ON NON-REBREATHER. SPO2 98% HR 110 RR18. NO SOB NOTED AT THIS TIME. NO INDICATION FOR BIPAP AT THIS TIME. WILL CONTINUE TO MONITOR
--- NOTE | 2019-11-25 19:45 | NUR ---
ICU/GROWTH HACKER RECEIVED REPORT FROM DAY NURSE. SEE NURSING FLOWSHEET FOR ASSESSMENT. THERE IS MANY SKIN ISSUES THAT ARE ADDRESSED ON THE FLOWSHEET ALONG WITH THE INTERVENTIONS TO EACH. PT IS CURRENTLY ON NRB MASK AT 15 LITERS, TOLERATING THIS WELL WITH SATURATION AT 100%. NO ACUTE DISTRESS SEEN AT THIS TIME, PT WAS TURNED AND REPOSITIONED FOR COMFORT AND CARE, WILL CONTINUE TO MONITOR THIS PT. PT IS CURRENTLY NPO WITH G/TUBE TO DRAINAGE WITH BLACK DRAINAGE. WILL CONTINUE TO MONITOR THIS PT FOR ANY CHANGES.
--- NOTE | 2019-11-25 21:00 | NUR ---
ICU/AVIONICS ENGINEER PT COMPLAINED ABOUT FEELING NAUSEA, COMPAZINE GIVEN IVP BY CHARGE NURSE FOR THIS. PT SAID ZOFRAN DOESN'T WORK. WILL CONTINUE TO MONITOR THIS PT AND HER NAUSEA. CALL LIGHT WITHIN REACH.
[2019-11-25] MEDS: FLUCONAZOLE IN NS 100 MG in PREMIX 1 EA IV SCH ×2 (21:08)
[2019-11-25] MEDS ORDERED: NOREPINEPHRINE 4 MG/4 ML AMPUL IV ONE (21:29)
--- NOTE | 2019-11-25 21:30 | NUR ---
ICU/FARROWING WORKER PT'S BLOOD PRESSURE IS LOW IN THE 70'S & 60'S, NOTIFIED CHARGE NURSE WHO THEN STARTED LEVO DOUBLE STRENGTH 16/500. WILL CONTINUE TO MONITOR THIS PT AND HER VITAL SIGNS. CALL LIGHT WITHIN REACH. THIS LEVO WAS STARTED AT 1MCG.
[2019-11-25] MEDS: NOREPINEPHRINE 16 MG in IV D5W 500 ML IV PRN (21:36)
--- NOTE | 2019-11-25 22:00 | NUR ---
ICU/2 YEAR OLDS PRESCHOOL TEACHER PT'S BLOOD PRESSURE CONTINUE TO BE LOW, NOTIFIED THE CHARGE NURSE WHO THEN INCREASED THE LEVO TO 3MCG FROM 1. BLOOD PRESSURE IS IN THE 80'S. CALL LIGHT WITHIN REACH WITH NO ACUTE DISTRESS SEEN.
--- NOTE | 2019-11-25 22:30 | NUR ---
CU/GENERATING PLANT SUPERINTENDENT PT'S BLOOD PRESSURE CONTINUE TO BE LOW, NOTIFIED THE CHARGE NURSE WHO THEN INCREASED THE LEVO TO 5MCG FROM 3. BLOOD PRESSURE IS IN THE 70'S. CALL LIGHT WITHIN REACH WITH NO ACUTE DISTRESS SEEN. WILL CONTINUE TO MONITOR THIS PT'S BLOOD PRESSURE.
--- NOTE | 2019-11-25 23:00 | NUR ---
ICU/HEEL WASHER STRINGING MACHINE OPERATOR PT'S BLOOD PRESSURE CONTINUE TO BE LOW, NOTIFIED THE CHARGE NURSE WHO THEN INCREASED THE LEVO TO 7MCG FROM 5. BLOOD PRESSURE IS IN THE 40'S. CALL LIGHT WITHIN REACH WITH NO ACUTE DISTRESS SEEN. WILL CONTINUE TO MONITOR THIS PT'S BLOOD PRESSURE.
[2019-11-26] VITALS (89 sets, daily range): BP systolic 74–140; BP diastolic 37–96
[2019-11-26] MEDS: BLOOD SUGAR DIAGNOSTIC 1 EACH STRIP IN SCH ×5 (00:03→17:12)
--- NOTE | 2019-11-26 02:00 | NUR ---
ICU/LIBRARIAN PT WAS GIVEN AM CARE, ALONG WITH ORAL CARE. PT TOLERATED THIS WELL, REMAINS ON CURRENT NONREBREATHER MASK WITH SATURATION AT 100%. THEN PT WAS TUNED AND REPOSITIONED FOR COMFORT AND CARE. NO ACUTE DISTRESS SEEN AT THIS TIME, WILL CONTINUE TO MONITOR THIS PT.
[2019-11-26] MEDS: PROCHLORPERAZINE EDISYLATE 10 MG/2 ML VIAL IVP PRN ×2 (03:28→19:39)
--- NOTE | 2019-11-26 03:30 | NUR ---
ICU/CAKE WINDER PT COMPLAINED ABOUT FEELING NAUSEA, COMPAZINE GIVEN IVP BY CHARGE NURSE FOR THIS. PT SAID ZOFRAN DOESN'T WORK. WILL CONTINUE TO MONITOR THIS PT AND HER NAUSEA. CALL LIGHT WITHIN REACH.
[2019-11-26] MEDS: IV D5W 1,000 ML IV PRN ×2 (03:47→17:08)
--- NOTE | 2019-11-26 04:00 | NUR ---
ICU/ROBOTICS APPLICATION ENGINEER AM LABS WERE DONE, AWAIT FOR ANY CRITICAL LAB VALUES.
[2019-11-26] MEDS: PANTOPRAZOLE 40 MG VIAL IV SCH ×2 (05:11→16:21)
[2019-11-26 05:53] LABS: CALCIUM, SERUM 7.3 mg/dL (8.5-10.1); CREATININE 1.7 mg/dL (0.6-1.3); POTASSIUM 3.4 mmol/L (3.5-5.1)
--- NOTE | 2019-11-26 06:54 | NUR ---
ICU/PAPER WINDER 1. ILEOSTOMY-100ML 2. NEPHROSTOMY-150ML 3. G/TUBE-250ML
--- NOTE | 2019-11-26 07:15 | NUR ---
MANAGER DELIVERY NOTES RECEIVED PATIENT AOX3 , ALBANIAN SPEAKING ABLE TO UNDERSTAND LUXEMBOURGER , ON 15LPM NON REBREATHER MASK WITH SPO2 OF 100% , DENIES SOB AND DISCOMFORT AT THIS TIME , ST 110 ON BEDSIDE MONITOR , LEFT NEPHROSTOMY NO DRAIN NOTED , RIGHT NEPHROSTOMY TUBE DRAINING VIA GRAVITY , ILEOSTOMY TUBE IN PLACE , G TUBE DRAINING VIA GRAVITY , GEORGE PICC TIN WITH D5W @ 75ML/HR AND LEVOPHED @ 7MCG/MIN , ALL NEEDS ATTENDED , WILL CONTINUE TO MONITOR
--- NOTE | 2019-11-26 07:40 | NUR ---
EMISSIONS REPAIR TECHNICIAN NOTES SPOKE WITH DR LAL , DISCUSSED LABS , K OF 3.4 , LEFT NEPHROSTOMY NOT DRAINING , PT ON LEVOPHED @ 7MCG/MIN , AWARE
[2019-11-26 08:04] LABS: BASOPHILS # (AUTO) 0.1 /CMM (0.0-0.2); BASOPHILS % (AUTO) 0.7 % (0.0-2.0); EOSINOPHILS % (AUTO) 0.1 % (0.0-6.0); HEMATOCRIT 26 % (33-45); HEMOGLOBIN 8.1 g/dL (11.5-14.8); LYMPHOCYTES % (AUTO) 6.9 % (20.0-44.0); MEAN CORPUSCULAR HGB CONC 31 g/dl (31.0-36.0); MEAN CORPUSCULAR VOLUME 95 fL (82-100); MONOCYTES # (AUTO) 0.4 /CMM (0.1-1.30); MONOCYTES % (AUTO) 2.5 % (2.0-12.0); NEUTROPHILS # (AUTO) 12.7 /CMM (1.8-8.9); NEUTROPHILS % (AUTO) 89.8 % (43.0-81.0); PLATELET COUNT (AUTO) 445 /CMM (150-450); RED BLOOD CELL COUNT(AUTO) 2.73 MIL/uL (4.0-5.2); WHITE BLOOD COUNT (AUTO) 14.1 K/uL (4.3-11.0)
[2019-11-26 08:12] LABS: IRON, SERUM 29 ug/dl (50-175); TOTAL IRON BINDING CAPACITY 96 ug/dl (250-450)
[2019-11-26 08:50] LABS: FERRITIN 5567 ng/mL (8-388)
[2019-11-26] MEDS: HYDROGEL DRESSING 90 GM TUBE TP SCH (09:16)
--- NOTE | 2019-11-26 09:49 | NUR ---
LEDGE MAN NOTES SEEN AND EVALUATED BY DR GARCIA , DISCUSSED LABS , PT ON LEVOPHED @ 2MCG/MIN , LEFT NEPHROSTOMY TUBE NOT DRAINING , PENDING NEPHROSTOGRAM , GT DRAINING VIA GRAVITY WITH BLACK THICK LIQUID OUTPUT , NO CHEST XRAY ORDERED FOR TODAY , F/U IF SHE WANTS TOT START PT ON TPN , PER MD VERIFY WITH PULMO PT HAS HISTORY AND RECENT PLEURAL EFFUSION
[2019-11-26] MEDS ORDERED: POTASSIUM CL. PREMIX PERIPHER. 50 ML IV SCH (09:56)
--- NOTE | 2019-11-26 14:20 | NUR ---
COMMERCIAL LOAN MANAGER NOTES SEEN AND EVALUATED BY DR PHAM , DISCUSSED LABS , GT DRAINING VIA GRAVITY WITH DARK SECRETION MODERATE IN AMOUNT , ON LEVOPHED @ 2MCG/MIN , AFEBRILE , PER MD DO ABDOMINAL KUB AND CALL HIM FOR THE RESULT SEEN AND EVALUATED BY DR JOSE DISCUSSED LABS , CHEST XRAY RESULT , S/P THORACENTESIS OF THE LEFT LUNG YESTERDAY 1450 cc of fluid was drained. AND RIGHT LUNG THORACENTESIS ON 11/23 1100 cc of fluid was drained. ON 15LPM NON REBREATHER MASK WITH NO DISTRESS SPO2 OF 100% , PER MD ORDER CHEST XRAY TOMORROW , ORDER CARRIED OUT
[2019-11-26] MEDS: HYDROMORPHONE 1 MG/1 ML DISP.SYRIN IV PRN (18:50)
--- NOTE | 2019-11-26 19:04 | NUR ---
DIRECTOR MUSIC NOTES PATIENT STABLE AT THIS TIME , DILADID 1MG GIVEN , PT COMPLAIN OF PAIN 8/10 ON HER ABDOMINAL AREA , AOX3 , POLISH SPEAKING ABLE TO UNDERSTAND KHMER , ON 15LPM NON REBREATHER MASK WITH SPO2 OF 100% , DENIES SOB AT THIS TIME , ST 111 ON BEDSIDE MONITOR , LEFT NEPHROSTOMY NO DRAIN NOTED , RIGHT NEPHROSTOMY TUBE DRAINING VIA GRAVITY , ILEOSTOMY DRAIN IN PLACE , G TUBE DRAINING VIA GRAVITY WITH THICK DARK OUTPUT , GEORGE PICC LINE WITH D5W @ 75ML/HR AND , ALL NEEDS ATTENDED , REPORT GIVEN TO SHORTY CALLED PHARMACY FOR COMPAZINE IV IT WAS NOT LOADED IN OMNICEL , PER PHARMACY THEY WILL BRING IT
--- NOTE | 2019-11-26 19:15 | NUR ---
RN OPENING NOTES: PATIENT IN BED, ASLEEP, BUT EASILY AROUSABLE WITH EYES OPEN TO VERBAL AND TACTILE STIMULI. ON NRB MASK AT 15 LPM, O2 SAT 100%, NO RESPIRATORY DISTRESS NOTED. NO SIGNS OF PAIN AT THIS TIME. NO FACIAL GRIMACING. BEDSIDE MONITOR SHOWS TACHY, HR 100-110. PATIENT HAS (L) AND (R) NEPHROSTOMY; ILEOSTOMY, AND GT TO DRAINAGE. PER AM SHIFT NURSE, AWAITING FOR KUB RESULT, STILL PENDING. PATIENT CURRENTLY NPO. GEORGE PICC LINE C/D/I. FLUSHING WELL. ON D5W AT 75 MLS/HR. BED LOCKED AND IN LOW POSITION. CALL LIGHT PLACED WITHIN REACH. WILL CONT. TO MONITOR. Addendum: 11/26/19 at 2344 by YELITZA HAN RN LEFT NEPHROSTOMY NO DRAINAGE NOTED.
[2019-11-26] MEDS: FLUCONAZOLE IN NS 100 MG in PREMIX 1 EA IV SCH ×2 (20:29)
[2019-11-26] MEDS: NOREPINEPHRINE 16 MG in IV D5W 500 ML IV PRN (21:18)
--- NOTE | 2019-11-26 21:18 | NUR ---
RN NOTE: PATIENT BP 74/56, HR 104. CHARGE NURSE AWARE. RESTARTED ON LEVO 1 MCG. WILL CONT. TO MONITOR.
--- NOTE | 2019-11-26 23:30 | NUR ---
RN NOTE: RECEIVED KUB RESULT. PER AM SHIFT NURSE, NOTIFY DR. PHAM OF RESULT. PAGED DR. PHAM. AWAITING FOR RESPONSE.
[2019-11-27] VITALS (93 sets, daily range): BP systolic 82–120; BP diastolic 42–77
[2019-11-27] MEDS: BLOOD SUGAR DIAGNOSTIC 1 EACH STRIP IN SCH ×5 (01:09→23:40)
[2019-11-27 04:56] LABS: BASOPHILS # (AUTO) 0.1 /CMM (0.0-0.2); BASOPHILS % (AUTO) 0.8 % (0.0-2.0); EOSINOPHILS % (AUTO) 0.2 % (0.0-6.0); HEMATOCRIT 25 % (33-45); HEMOGLOBIN 7.9 g/dL (11.5-14.8); LYMPHOCYTES # (AUTO) 0.6 /CMM (0.8-4.8); LYMPHOCYTES % (AUTO) 4.2 % (20.0-44.0); MEAN CORPUSCULAR HGB CONC 32 g/dl (31.0-36.0); MEAN CORPUSCULAR VOLUME 93 fL (82-100); MONOCYTES # (AUTO) 0.5 /CMM (0.1-1.30); MONOCYTES % (AUTO) 3.8 % (2.0-12.0); PLATELET COUNT (AUTO) 418 /CMM (150-450); RED BLOOD CELL COUNT(AUTO) 2.66 MIL/uL (4.0-5.2); WHITE BLOOD COUNT (AUTO) 13.2 K/uL (4.3-11.0)
[2019-11-27] MEDS: PANTOPRAZOLE 40 MG VIAL IV SCH ×2 (05:02→17:07)
[2019-11-27 05:17] LABS: CALCIUM, SERUM 7.1 mg/dL (8.5-10.1); CREATININE 1.8 mg/dL (0.6-1.3); MAGNESIUM 2.1 mg/dL (1.8-2.4); PHOSPHORUS 6.1 mg/dL (2.5-4.9); POTASSIUM 3.3 mmol/L (3.5-5.1)
[2019-11-27] MEDS: IV D5W 1,000 ML IV PRN ×2 (05:21→17:07)
[2019-11-27] MEDS: INSULIN REGULAR, HUMAN 100 UNIT/ML 3 ML VIAL SQ PRN ×4 (05:26→23:41)
--- NOTE | 2019-11-27 07:00 | NUR ---
RN CLOSING NOTES: PATIENT IN BED, ASLEEP, BUT EASILY AROUSABLE WITH EYES OPEN TO VERBAL AND TACTILE STIMULI. REMAINS ON NRB MASK AT 15 LITERS, TOLERATING WELL, O2 SAT 100%. NO RESPIRATORY DISTRESS NOTED. NO SIGNS OF PAIN AT THIS TIME. NO FACIAL GRIMACING. GEORGE PICC LINE C/D/I. FLUSHING WELL. ON D5W AT 75 MLS/HR. BEDSIDE MONITOR SHOWS SINUS TACHY, HR 100s. PATIENT HAS (L) AND (R) NEPHROSTOMY; ILEOSTOMY, AND GT TO DRAINAGE. STILL NO DRAINAGE IN (L) NEPHROSTOMY. RECEIVED ABDOMINAL KUB RESULT, NO RESPONSE FROM DR. PHAM. ENDORSED TO AM SHIFT NURSE FOR CONTINUITY OF CARE.
--- NOTE | 2019-11-27 07:15 | NUR ---
TUGBOAT CAPTAIN NOTES RECEIVED PATIENT AOX3 , BELARUSIAN / ST [place]CIAN SPEAKING ABLE TO UNDERSTAND UPPER SORBIAN , ON 15 LPM NON REBREATHER MASK WITH SPO2 OF 100% , DENIES SOB AT THIS TIME , ST 105 ON BEDSIDE MONITOR , LEFT NEPHROSTOMY NO DRAIN NOTED , RIGHT NEPHROSTOMY TUBE DRAINING VIA GRAVITY , ILEOSTOMY DRAIN IN PLACE , G TUBE DRAINING VIA GRAVITY WITH THICK DARK GREEN OUTPUT , GEORGE PICC LINE WITH D5W @ 75ML/HR AND LEVOPHED @ 11MCG/MIN , ALL NEEDS ATTENDED WILL CONTINUE TO MONITOR PT COMPLAINS OF ABDOMINAL PAIN 04/30 , WILL GIVE PRN MEDICATIONS ORDERED
--- NOTE | 2019-11-27 07:15 | NUR ---
RURAL MAIL CARRIER NOTES RECEIVED PATIENT AOX3 , ROMANIAN/[place]IZEN [place] SPEAKING ABLE TO UNDERSTAND SAMI , ON 15 LPM NON REBREATHER MASK WITH SPO2 OF 100% , DENIES SOB , COMPLAINS 8/10 IN HER ABDOMINAL AREA AT THIS TIME , ST 105 ON BEDSIDE MONITOR , LEFT NEPHROSTOMY NO DRAIN NOTED , RIGHT NEPHROSTOMY TUBE DRAINING VIA GRAVITY , ILEOSTOMY IN PLACE DRAINING WITH CLEAR YELLOW WITH SEDIMENTS , G TUBE DRAINING VIA GRAVITY WITH DARK MUCOID OUTPUT , GEORGE PICC LINE WITH D5W @ 75ML/HR AND LEVOPHED @ 11MCG/MIN , ALL NEEDS ATTENDED , WILL CONTINUE TO MONITOR
--- NOTE | 2019-11-27 07:15 | NUR ---
LEAD MASSAGE THERAPIST NOTES SERVICE PROVIDER NOTIFIED DR PUENTES REGADING ABD KUV RESULT , AWAITING FOR ORDERS
[2019-11-27] MEDS: PROCHLORPERAZINE EDISYLATE 10 MG/2 ML VIAL IVP PRN ×4 (07:31→23:24)
[2019-11-27] MEDS: HYDROMORPHONE 1 MG/1 ML DISP.SYRIN IV PRN ×4 (07:36→21:36)
[2019-11-27] MEDS: HYDROGEL DRESSING 90 GM TUBE TP SCH (08:26)
[2019-11-27] MEDS ORDERED: POTASSIUM CL. PREMIX PERIPHER. 50 ML IV SCH (09:25)
--- NOTE | 2019-11-27 11:00 | NUR ---
SAP SD ANALYST NOTES PLACED PT ON BIPAP COMPLAINING OF SOB , SETTINGS ARE 16/10 RATE 16 FIO2 OF 50% , DR GARCIA AND DAMON AWARE , WILL CONTINUE TO MONITOR
--- NOTE | 2019-11-27 12:41 | NUR ---
POWER HOUSE ENGINEER NOTES NOTIFIED DR GARCIA REGARDING VENOUS DOPPLER OF THE LEFT ARM RESULT AWAITING FOR CALL BACK Addendum: 11/27/19 at 1722 by LIZ CHATTERJEE RN DISCUSSED RESULT AND PT HAS DVT ON THE SAME LOCATION DURING PREVIOUS ADMISSION
--- NOTE | 2019-11-27 14:10 | NUR ---
FRUIT AND VEGETABLE PACKER NOTES PT PLACED ON NON REBREATHER MASK @ 15LPM , PT REQUESTED TO BE OFF BIPAP , NOT ON DISTRESS , SPO2 OF 100% RR OF 10-15CPM , HR 110 , SBP ABOVE 100MMHG , HOB @ 45, WILL CONTINUE TO MONITOR
[2019-11-27] MEDS: NOREPINEPHRINE 16 MG in IV D5W 500 ML IV PRN (17:08)
--- NOTE | 2019-11-27 17:19 | NUR ---
COTTON BREEDER NOTES SPOKE WITH DR GARCIA , DISCUSSED PT IS COMPLAINING OF PAIN 04/30 PT ON DILAUDID 1MG Q4PRN ,PT IS GETTING IT EVERY 4 HOURS PRN , SON IS ASKING IF PAIN MEDICATION CAN BE INCREASE , DISCUSSED THAT PT IS LETHARGIC AND DROWSY WITH THE SON , PER SON HE WANTS TO KEEP HER MOM PAIN FREE AT THIS TIME , PER MD OK TO INCREASE DILAUDID 2MG Q4 PRN , ORDER CARRIED OUT
--- NOTE | 2019-11-27 17:23 | NUR ---
COAGULATING OPERATOR NOTES GI OCCULT BLOOD COLLECTED THRU GT SIDE , LABELED AND SENT TO LAB
--- NOTE | 2019-11-27 18:51 | NUR ---
THERMAL CUTTER HAND NOTES PATIENT STABLE AT THIS TIME , AOX3 , LEBANESE SPEAKING ABLE TO UNDERSTAND [place] DROWSY AND LETHARGIC , ON 15LPM NON REBREATHER MASK WITH SPO2 OF 100% , DENIES SOB AT THIS TIME , ST 109 ON BEDSIDE MONITOR , LEFT NEPHROSTOMY NO DRAIN NOTED , RIGHT NEPHROSTOMY TUBE DRAINING VIA GRAVITY , ILEOSTOMY DRAIN IN PLACE , G TUBE DRAINING VIA GRAVITY WITH THICK DARK OUTPUT , GEORGE PICC LINE WITH D5W @ 75ML/HR AND LEVOPHED @ 8MCG/MIN , ALL NEEDS ATTENDED , REPORT GIVEN TO JORGE LUIS SON AND PT REFUSED BED BATH , REFUSED BILATERAL HEELS TO BE OFFLOADED ,
--- NOTE | 2019-11-27 19:30 | NUR ---
PLASTIC PRESS MOLDER RCD PT W/DX SEPSIS; PT APPEARS DROWSY. ST ON MONITOR. LEVOPHED AT 8 MCG/MIN. NRB 15L CONTINUE TO MONITOR.
[2019-11-27] MEDS: FLUCONAZOLE IN NS 100 MG in PREMIX 1 EA IV SCH ×2 (20:00)
--- NOTE | 2019-11-27 20:10 | NUR ---
PRODUCTION HAND SON AT BEDSIDE; UPDATE GIVEN.
--- NOTE | 2019-11-27 20:15 | NUR ---
RT Pt was mildly arousable, shallow breathing, and low respirations. Pt was placed on BiPAP with noted settings. BiPAP is plugged into red outlet. TRISTAN Muniz notified and aware. Addendum: 11/27/19 at 2102 by POLO HARMON RT Amended: Links added.
--- NOTE | 2019-11-27 20:15 | NUR ---
MACHINE APPLICATOR CEMENTER UPON ASSESSMENT PT WITH LOW RR; PLACED ON BIPAP BY RT. CONTINUE TO MONITOR.
--- NOTE | 2019-11-27 21:36 | NUR ---
STRAINER TENDER SON REQUESTED PT BE GIVEN DILAUDID; PT NODS YES TO PAIN. DILAUDID GIVEN ORDERED. CONTINUE TO MONITOR. SON AGREED TO HAVE PT REPOSITIONED BUT DECLINED BATH WANTS PT TO REST.
--- NOTE | 2019-11-27 23:25 | NUR ---
SHEARER PRINTED CIRCUIT BOARDS PTS SON LAVERN WENT HOME AT THIS TIME. STATES HE WILL BE BACK AT 0800. ASKING THAT PT BE GIVEN COMPAZINE AT THIS TIME TO HELP HER SLEEP THRU THE NIGHT.
--- NOTE | 2019-11-27 23:35 | NUR ---
IDENTITY MANAGEMENT DEVELOPER PT UPSET SHE WAS WOKEN TO HAVE ACCU CHECK; INITIALLY REFUSING. BLOOD GLUCOSE 142 COVERAGE PER PROTOCOL.
[2019-11-28] VITALS (91 sets, daily range): BP systolic 82–137; BP diastolic 46–80
--- NOTE | 2019-11-28 | NUR ---
DRY END OPERATOR PT DECLINED TO BE REPOSITIONED. JUST WANTS TO SLEEP.
[2019-11-28] MEDS: HYDROMORPHONE 1 MG/1 ML DISP.SYRIN IV PRN ×2 (03:34→17:02)
--- NOTE | 2019-11-28 03:35 | NUR ---
AIRCREWMAN PT CONTINUES TO DECLINE TO BE REPOSITIONED; REQUESTED MORE DILAUDID.
[2019-11-28] MEDS: PANTOPRAZOLE 40 MG VIAL IV SCH ×2 (04:35→16:50)
[2019-11-28] MEDS: BLOOD SUGAR DIAGNOSTIC 1 EACH STRIP IN SCH ×3 (05:41→17:47)
[2019-11-28] MEDS: INSULIN REGULAR, HUMAN 100 UNIT/ML 3 ML VIAL SQ PRN (05:42)
[2019-11-28 05:56] LABS: BASOPHILS # (AUTO) 0.1 /CMM (0.0-0.2); BASOPHILS % (AUTO) 0.4 % (0.0-2.0); EOSINOPHILS % (AUTO) 0.3 % (0.0-6.0); HEMATOCRIT 25 % (33-45); LYMPHOCYTES # (AUTO) 0.5 /CMM (0.8-4.8); LYMPHOCYTES % (AUTO) 3.9 % (20.0-44.0); MEAN CORPUSCULAR HGB CONC 32 g/dl (31.0-36.0); MEAN CORPUSCULAR VOLUME 93 fL (82-100); MONOCYTES # (AUTO) 0.3 /CMM (0.1-1.30); MONOCYTES % (AUTO) 2.2 % (2.0-12.0); NEUTROPHILS # (AUTO) 12.7 /CMM (1.8-8.9); NEUTROPHILS % (AUTO) 93.2 % (43.0-81.0); PLATELET COUNT (AUTO) 377 /CMM (150-450); RED BLOOD CELL COUNT(AUTO) 2.67 MIL/uL (4.0-5.2); WHITE BLOOD COUNT (AUTO) 13.6 K/uL (4.3-11.0)
[2019-11-28 06:09] LABS: CALCIUM, SERUM 7.4 mg/dL (8.5-10.1); CREATININE 1.7 mg/dL (0.6-1.3); MAGNESIUM 2.1 mg/dL (1.8-2.4); PHOSPHORUS 6.7 mg/dL (2.5-4.9); POTASSIUM 3.7 mmol/L (3.5-5.1)
--- NOTE | 2019-11-28 06:41 | NUR ---
WASTEWATER ANALYST PT REMAINED ON BIPAP. DECLINED TO BE TURNED AFTER MIDNIGHT. PT SEEMED BOTHERED WHEN ATTEMPTING TO DO PT CARE.
[2019-11-28 07:05] LABS: BAND % (MANUAL) 2 % (0.0-5.0); LYMPHOCYTES % (MANUAL) 5 % (16-48); MONOCYTES % (MANUAL) 4 % (0-11.0); NEUTROPHILS % (MANUAL) 89 (42-76)
--- NOTE | 2019-11-28 07:37 | NUR ---
PT IS AWAKE AND ALERT PLACED ON 10 LPM O2 FLOW VIA SIMPLE MASK. SPO2 96% RR 16 - 20 BPM HR 105 - 108 bpm TOLERATING WELL ON SIMPLE MASK. Addendum: 11/28/19 at 0739 by RENY COX RT Amended: Links added.
--- NOTE | 2019-11-28 07:45 | NUR ---
ICU/RN: INITIAL NOTES,AM RECEIVED BEDSIDE REPORT FROM NIGHT NURSE. PT AWAKE, LETHARGIC, FOLLOWS SIMPLE COMMANDS. PT TAKEN OFF BIPAP AND PLACED ON 10LITERS SIMPLE MASK, TOLERATING WELL NO DISTRESS NOTED. SINUS TACH ON TELE. RIGHT UPPER ARM PICC LINE PATENT AND INTACT, NO S/S OF INFECTION OR INFILTRATION NOTED. LEVOPHED INFUSING PER PROTOCOL FOR BP SUPPORT. IVF INFUSING AT 75 ML/HR. PLAN FOR THORACENTESIS AND NEPHROSTOGRAM THIS AM, CONSENTS IN CHART. ALL NEEDS WILL BE ATTENDED TO,SAFETY MEASURES TAKEN, BED IN LOW POSITION, SIDE RAILS UP, CALL LIGHT WITHIN REACH. WILL CONTINUE CARE.
[2019-11-28] MEDS: IV D5W 1,000 ML IV PRN (08:59)
--- NOTE | 2019-11-28 09:30 | NUR ---
ICU/RN: RIGHT THORACENTESIS DONE, 1.2L OUT. TOLERATED WELL, NO S/S OF BLEEDING NOTED. WILL CONTINUE TO MONITOR.
[2019-11-28] MEDS: HYDROGEL DRESSING 90 GM TUBE TP SCH (10:16)
[2019-11-28] MEDS ORDERED: IOHEXOL 240MG/ML 50 ML IV ONE ×3 (10:55→11:36)
[2019-11-28] MEDS ORDERED: IOHEXOL 0 ML IV ONE (11:29)
--- NOTE | 2019-11-28 11:55 | NUR ---
ICU/RN: TRANSPORTED PT BACK TO ROOM FROM NEPHROSTOGRAM IN IR WITH ACLS GUIDELINES. PT ALERT, FOLLOWS SIMPLE COMMANDS, STILL NOTED TO BE LETHARGIC. NO COMPLICATIONS DURING PROCEDURE, SONS AT BEDSIDE, UPDATES GIVEN. LEVO INFUSING FOR BP SUPPORT. LEFT AND RIGHT NEPHROSTOMY NOW DRAINING. WILL CONTINUE TO MONITOR
[2019-11-28] MEDS: PROCHLORPERAZINE EDISYLATE 10 MG/2 ML VIAL IVP PRN (18:40)
--- NOTE | 2019-11-28 19:30 | NUR ---
MEAT LOINER NOTE RECEIVED PT LETHARGIC, AROUSABLE TO TOUCH AND WITHDRAWING FROM PAIN. ON 10L OF O2 VIA SIMPLE FACE MASK. BREATHING UNLABORED BUT SHALLOW. TELE-ST. NOTED WITH BILATERAL NEPHROSTOMIES AND DRAINING BY GRAVITY. OSTOMY SECURED IN PLACE. GT TO GRAVITY. PT NPO. ORAL CARE PERFORMED. ON LEVO 8MCG AND D5W @ 75 ML/HR. CALL LIGHT WITHIN REACH. SON AT BEDSIDE AND PT DENIES PAIN OR DISCOMFORT AT THIS TIME. WILL MONITOR.
--- NOTE | 2019-11-28 19:36 | NUR ---
ICU/RN: ENDING NOTES,AM REPORT ENDORSED TO NIGHT NURSE FOR DOMINGO. PT ON SIMPLE MASK, NO ACUTE DISTRESS, PT LETHARGIC/WEAK. SINUS TACH ON TELE. RIGHT UPPER ARM PICC LINE PATENT AND INTACT LEVO INFUSING FOR BP SUPPORT, IVF INFUSING ORDERED. PT S/P THORACENTESIS AND LEFT AND RIGHT NEPHROSTOGRAM. BILATERAL SIDES NOW DRAINING. ALL NEEDS ATTENDED TO, SAFETY MEASURES TAKEN, BED IN LOW POSITION, SIDE RAILS UP, CALL LIGHT WITHIN REACH. WILL CONTINUE CARE.
[2019-11-28] MEDS: FLUCONAZOLE IN NS 100 MG in PREMIX 1 EA IV SCH ×2 (20:26)
[2019-11-29] VITALS (97 sets, daily range): BP systolic 77–139; BP diastolic 44–102
[2019-11-29] MEDS: BLOOD SUGAR DIAGNOSTIC 1 EACH STRIP IN SCH ×4 (00:02→17:38)
[2019-11-29] MEDS: IV D5W 1,000 ML IV PRN ×2 (00:02→15:00)
[2019-11-29] MEDS: NOREPINEPHRINE 16 MG in IV D5W 500 ML IV PRN (00:03)
[2019-11-29 04:42] LABS: BASOPHILS # (AUTO) 0.1 /CMM (0.0-0.2); BASOPHILS % (AUTO) 0.6 % (0.0-2.0); EOSINOPHILS % (AUTO) 0.5 % (0.0-6.0); HEMATOCRIT 22 % (33-45); HEMOGLOBIN 7.2 g/dL (11.5-14.8); LYMPHOCYTES # (AUTO) 0.4 /CMM (0.8-4.8); LYMPHOCYTES % (AUTO) 3.9 % (20.0-44.0); MEAN CORPUSCULAR HGB CONC 33 g/dl (31.0-36.0); MEAN CORPUSCULAR VOLUME 93 fL (82-100); MONOCYTES # (AUTO) 0.1 /CMM (0.1-1.30); MONOCYTES % (AUTO) 0.8 % (2.0-12.0); NEUTROPHILS # (AUTO) 9.9 /CMM (1.8-8.9); NEUTROPHILS % (AUTO) 94.2 % (43.0-81.0); PLATELET COUNT (AUTO) 275 /CMM (150-450); RED BLOOD CELL COUNT(AUTO) 2.39 MIL/uL (4.0-5.2); WHITE BLOOD COUNT (AUTO) 10.5 K/uL (4.3-11.0)
[2019-11-29 05:12] LABS: CREATININE 1.8 mg/dL (0.6-1.3); MAGNESIUM 1.8 mg/dL (1.8-2.4); PHOSPHORUS 5.9 mg/dL (2.5-4.9); POTASSIUM 3.6 mmol/L (3.5-5.1)
[2019-11-29] MEDS: HYDROMORPHONE 1 MG/1 ML DISP.SYRIN IV PRN ×2 (05:12→15:15)
[2019-11-29] MEDS: PANTOPRAZOLE 40 MG VIAL IV SCH ×2 (05:12→17:38)
--- NOTE | 2019-11-29 07:38 | NUR ---
ICU/RN: INITIAL NOTES,AM RECEIVED BEDSIDE REPORT FROM NIGHT NURSE. PT OPENS EYES, LETHARGIC, FOLLOWS SIMPLE COMMANDS. PT ON 10LITERS SIMPLE MASK, TOLERATING WELL NO DISTRESS NOTED. SINUS TACH ON TELE, 102. RIGHT UPPER ARM PICC LINE PATENT AND INTACT, NO S/S OF INFECTION OR INFILTRATION NOTED. LEVOPHED INFUSING PER PROTOCOL FOR BP SUPPORT. IVF INFUSING AT 75 ML/HR. ALL NEEDS WILL BE ATTENDED TO,SAFETY MEASURES TAKEN, BED IN LOW POSITION, SIDE RAILS UP, CALL LIGHT WITHIN REACH. WILL CONTINUE CARE.
[2019-11-29] MEDS: HYDROGEL DRESSING 90 GM TUBE TP SCH (08:44)
[2019-11-29] MEDS ORDERED: NOREPINEPHRINE 8 MG in IV NS 0.9% 242 ML IV PRN (15:00)
--- NOTE | 2019-11-29 18:00 | NUR ---
ICU/RN: SON LAVERN AND DAUGHTER OF PT AT BEDSIDE. HAD IN DEPTH DISCUSSION REGARDING PT CONDITION AND PROGNOSIS. PER FAMILIES REQUEST THEY WANT TO PLAN A FAMILY MEETING IN AM WITH DOCTORS AND SWITCH PT TO COMFORT CARE. WILL FOLLOW THROUGH
--- NOTE | 2019-11-29 19:30 | NUR ---
ICU/RN: ENDING NOTES,AM REPORT ENDORSED TO NIGHT NURSE FOR DOMINGO. PT ON SIMPLE MASK, NO ACUTE DISTRESS, PT LETHARGIC/WEAK. SINUS TACH ON TELE. RIGHT UPPER ARM PICC LINE PATENT AND INTACT LEVO INFUSING FOR BP SUPPORT, IVF INFUSING ORDERED. LEFT/RIGHT NEPHROSTOMY,BILATERAL SIDES. ALL NEEDS ATTENDED TO, SAFETY MEASURES TAKEN, BED IN LOW POSITION, SIDE RAILS UP, CALL LIGHT WITHIN REACH. WILL CONTINUE CARE. ENDORSED TO NIGHT NURSE THAT FAMILY WANTS TO SWITCH TO COMFORT CARE TOMORROW AFTER A FAMILY MEETING. WILL ARRANGE IN AM.
[2019-11-29] MEDS: FLUCONAZOLE IN NS 100 MG in PREMIX 1 EA IV SCH ×2 (21:39)
[2019-11-30] VITALS (36 sets, daily range): BP systolic 81–153; BP diastolic 47–122
[2019-11-30] MEDS: BLOOD SUGAR DIAGNOSTIC 1 EACH STRIP IN SCH ×2 (00:26→06:02)
[2019-11-30] MEDS: HYDROMORPHONE 1 MG/1 ML DISP.SYRIN IV PRN (00:29)
[2019-11-30 04:52] LABS: BASOPHILS # (AUTO) 0.1 /CMM (0.0-0.2); BASOPHILS % (AUTO) 0.9 % (0.0-2.0); EOSINOPHILS % (AUTO) 0.6 % (0.0-6.0); HEMATOCRIT 22 % (33-45); HEMOGLOBIN 7.4 g/dL (11.5-14.8); LYMPHOCYTES # (AUTO) 0.3 /CMM (0.8-4.8); LYMPHOCYTES % (AUTO) 3.8 % (20.0-44.0); MEAN CORPUSCULAR HGB CONC 33 g/dl (31.0-36.0); MEAN CORPUSCULAR VOLUME 93 fL (82-100); MONOCYTES # (AUTO) 0.3 /CMM (0.1-1.30); NEUTROPHILS % (AUTO) 91.7 % (43.0-81.0); PLATELET COUNT (AUTO) 282 /CMM (150-450); WHITE BLOOD COUNT (AUTO) 8.8 K/uL (4.3-11.0)
[2019-11-30 05:04] LABS: CALCIUM, SERUM 7.1 mg/dL (8.5-10.1); CREATININE 1.7 mg/dL (0.6-1.3); MAGNESIUM 1.8 mg/dL (1.8-2.4); PHOSPHORUS 5.6 mg/dL (2.5-4.9); POTASSIUM 3.5 mmol/L (3.5-5.1)
[2019-11-30] MEDS: PANTOPRAZOLE 40 MG VIAL IV SCH (05:46)
[2019-11-30] MEDS: IV D5W 1,000 ML IV PRN (06:03)
--- NOTE | 2019-11-30 06:40 | NUR ---
ENGINE OILER: NO SIGNIFICANT DOMINGO DURING THE SHIFT. PT REMAINS LETHARGIC, ABLE TO FOLLOW COMMANDS AND MOUTH WORDS. SINUS TACH WT HR LESS THAN 120 ON PROFESSOR OF ART. AFEBRILE. NOW ON 4L O2 VIA NC WT NO ACUTE DISTRESS. NEEDED OCCASIONAL OROPHARYNGEAL SUCTIONING WT MODERATE AMT. OF THICK MIKE SECRETIONS. GIVEN DILAUDID X1 FOR C/O GEN. BODY PAIN (04/30) WT GOOD EFFECT. LEVOPHED OFF AT 0630. CONTINUE ON D5W AT 75ML/HR WT NO S/S OF GEORGE PICC LINE COMPLICATIONS. BILAT. NEPHROSTOMY TUBES WT GOOD DEEPAK COLORED URINE OUTPUT, COLOSTOMY NO OUTPUT AND G-TUBE CONNECTED TO BAG VIA GRAVITY WT 100CC DARK GREEN SLUDGE SECRETIONS. BLOOD SUGAR WNL. BED BATH GIVEN AND TOLERATED FAIRLY. TURNED AND REPOSITIONED Q2H. HOB AT 35 DEGREES. BED IN LOWEST POSITION AND LOCKED, SIDE RAILS UP X2. CALL LIGHT KEPT WITHIN REACH. WILL ENDORSE TO DAY SHIFT FOR FAMILY'S REQUEST TO HAVE MEETING WT PHYSICIANS.
--- NOTE | 2019-11-30 08:00 | NUR ---
ICU/RN AM SHIFT OPENING NOTES RECEIVED PT ASLEEP, EASILY AROUSED BUT LETHARGIC, PT ALERT ABLE TO RESPONSE, FOLLOWS COMMAND. NO ACUTE CHANGE OF CONDITION NOTED AT THIS TIME, ON 4L HUMIDIFIED O2 VIA N/C SATURATING @ 96%, RESPIRATIONS EVEN & UNLABORED, LUNG SOUNDS RHONCHI, ORAL SUCTIONED, NOTED WITH THICK YELLOW TO GREEN SECRETIONS. ON TELE WITH SINUS TACHY, HR 115 WITH OCCASIONAL PVCs, BP SUSTAINING @ 117/55 AT THIS TIME. WITH ON GOING IV INFUSION OF D5W @ 75CC/HR, PICC LINE PATENT WITH NO S/S OF INFECTION. BILATERAL NEPHROSTOMY TUBE INTACT, NO OUTPUT SEEN AT THIS TIME, GT BEING DRAINED BY GRAVITY NOTED WITH VERY MINIMAL OUTPUT OF DARK RED GASTRIC CONTENT. EXTREMITIES OFF LOADED ON PILLOWS. PT IS COMFORTABLE AT THIS TIME. CL WITHIN REACHED AND SAFETY MAINTAINED. ON GOING MONITORING.
[2019-11-30] MEDS: HYDROGEL DRESSING 90 GM TUBE TP SCH (08:58)
[2019-11-30] MEDS ORDERED: IV NS 0.9% 1,000 ML IV PRN (09:00)
--- NOTE | 2019-11-30 09:45 | NUR ---
ICU/RN LOW BP - RESTART LEVO PT NOTED WITH BP 81/43, HR 113. PT RE-STARTED ON LEVO @ 0.02MCG/KG/MIN. ON GOING MONITORING.
--- NOTE | 2019-11-30 09:55 | NUR ---
ICU/WOOL SHEARING SUPERVISOR MEETING NOTIFIED NOTIFIED DR. FARRIS VIA TEXT MESSAGE OF PT'S FAMILY REQUEST FOR MEETING TO DISCUSS COMFORT CARE FOR PT.
--- NOTE | 2019-11-30 10:39 | NUR ---
ICU/RN VISITOR RESTRICTIONS LIST OF NAMES OF VISITORS ALLOWED TO SEE PT MADE. LIST FORWARDED TO SECURITY, CHARGE NURSE MADE AWARE.
--- NOTE | 2019-11-30 10:41 | NUR ---
ICU/RN ROUNDS - DR. KALEIGH FARRIS DISCUSSING PLAN OF CARE WITH FAMILY AT BEDSIDE.
[2019-11-30] MEDS ORDERED: D5W IV PRN (11:30)
[2019-11-30] MEDS ORDERED: HYDROMORPHONE IV PRN ×2 (11:30→12:30)
[2019-11-30] MEDS ORDERED: ONDANSETRON HCL/PF 4 MG/2 ML VIAL IV PRN (11:30)
[2019-11-30] MEDS ORDERED: LORAZEPAM INJ 2 MG/ML VIAL IV PRN (11:30)
[2019-11-30] MEDS ORDERED: NS 0.9% IV PRN (12:30)
[2019-11-30] MEDS ORDERED: HYDROMORPHONE INJ 0.5 MG/0.5 ML SYRINGE IV PRN (13:00)
[2019-11-30] MEDS ORDERED: HYDROMORPHONE 1 MG/1 ML DISP.SYRIN IV PRN (13:00)
--- NOTE | 2019-11-30 14:45 | NUR ---
MS1/SENIOR POWER SCHEDULER MS1 105 FOR COMFORT CARE PT TRANSFERRED BY BED TO ROOM 105.
[2019-11-30] MEDS ORDERED: KEY,NONCONTROL,TO KEEP IN PYXI 1 EA MC ONE (14:46)
--- NOTE | 2019-11-30 14:53 | NUR ---
MS1/RN DILAUDID DRIP BEGIN DILAUDID DRIP @ 2MG/HR, STARTED AT THIS TIME. FAMILY AT BEDSIDE. MONITORING.
[2019-11-30] MEDS ORDERED: IV NS 0.9% 250 ML IV PRN (15:30)
--- NOTE | 2019-11-30 16:35 | NUR ---
MS1/RN AFTERNOON ROUNDS FAMILY MEMBERS AT BEDSIDE. PT IS COMFORTABLE.
--- NOTE | 2019-11-30 17:00 | NUR ---
MS1/COMBAT CONTROL MANAGER FOR HOSPICE CARE PT WITH ON GOING DILAUDID DRIP @ 2MG/HR, DISCHARGE TO BE RE-ADMITTED FOR HOSPICE CARE. NO ACUTE CHANGE OF CONDITION.
== END 2019-11-30 16:46 | disposition hospice, home (50) | DRG 871 ==
LOC: ER 20:15 → TELE 21:55 → MED 11-23 09:18 → ICU 11-24 07:25 → MEDSG1 11-30 14:39
PROVIDERS: ADMIT Hospitalist; ATTEND Nurse Practitioner Acute Care
PROC: 0W993ZZ Drainage of Right Pleural Cavity, Percutaneous Approach (ICD-10-PCS; principal; 2019-11-24)
PROC: 5A09357 Assistance with Respiratory Ventilation, Less than 24 Consecutive Hours, Continuous Positive Airway Pressure (ICD-10-PCS; 2019-11-25)
PROC: 0W9B3ZZ Drainage of Left Pleural Cavity, Percutaneous Approach (ICD-10-PCS; 2019-11-25)
PROC: 0W993ZZ Drainage of Right Pleural Cavity, Percutaneous Approach (ICD-10-PCS; 2019-11-28)
DX: A41.9 Sepsis, unspecified organism (principal); L89.154 Pressure ulcer of sacral region, stage 4; J96.01 Acute respiratory failure with hypoxia; N17.0 Acute kidney failure with tubular necrosis; R65.21 Severe sepsis with septic shock; J18.9 Pneumonia, unspecified organism; J90 Pleural effusion, not elsewhere classified; E87.0 Hyperosmolality and hypernatremia; D68.69 Other thrombophilia; E87.2 Acidosis; C56.9 Malignant neoplasm of unspecified ovary; B37.49 Other urogenital candidiasis; N13.6 Pyonephrosis; E86.0 Dehydration; Z79.4 Long term (current) use of insulin; D47.3 Essential (hemorrhagic) thrombocythemia; D64.9 Anemia, unspecified; E87.6 Hypokalemia; E11.9 Type 2 diabetes mellitus without complications; Z93.6 Other artificial openings of urinary tract status; R13.10 Dysphagia, unspecified; Z51.5 Encounter for palliative care; Z86.718 Personal history of other venous thrombosis and embolism; Z66 Do not resuscitate; Z90.710 Acquired absence of both cervix and uterus; Z93.3 Colostomy status; F41.9 Anxiety disorder, unspecified; Z22.322 Carrier or suspected carrier of Methicillin resistant Staphylococcus aureus; K94.21 Gastrostomy hemorrhage; Y83.8 Other surgical procedures as the cause of abnormal reaction of the patient, or of later complication, without mention of misadventure at the time of the procedure; Y73.8 Miscellaneous gastroenterology and urology devices associated with adverse incidents, not elsewhere classified; Y92.129 Unspecified place in nursing home as the place of occurrence of the external cause; Z53.9 Procedure and treatment not carried out, unspecified reason
CPT/HCPCS: 36415; 36600; 71045-TC; 74018; 74425-TC; 76770-TC; 80048-TC; 80053-TC; 80061-TC; 80076-TC; 80202-TC; 81000-TC; 82271; 82728-TC; 82803-TC; 82962-TC; 83540-TC; 83605-TC; 83735-TC; 84100-TC; 84443-TC; 84484-TC; 85025-TC; 85730-TC; 86850-TC; 87040-TC; 87070-TC; 87075-TC; 87081-TC; 87086-TC; 87102-TC; 88112-TC; 88305-TC; 88312-TC; 88341; 88342; 89051-TC; 93971-TC; 94799-TC; A4216; A6248; A6253; A6403; C9113; G0378; J0780; J1170; J1450; J1815; J2185; J2405; J3370; J3475; J3480; J3490; J7030; J7040; J7042; J7050; J7060; J7070; Q9966; Q9967

== ENCOUNTER 2019-11-30 16:33 | Inpatient (IN) | payer OTHER ==
[~2019-11-30] VITALS: Ht 154.9 cm; Wt 60.8 kg
[~2019-11-30 16:33] MED LIST changes: +DOCU-141 GT; +HYDR4TAB4 GT; +METO10SY IV; +SIME120L GT
[2019-11-30] MEDS ORDERED: LORAZEPAM INJ 2 MG/ML VIAL IV PRN (17:00)
[2019-11-30] MEDS ORDERED: ACETAMINOPHEN 650 MG/SUPP.RECT RC PRN (17:00)
[2019-11-30] MEDS ORDERED: ONDANSETRON HCL/PF 4 MG/2 ML VIAL IV PRN (17:00)
[2019-11-30] MEDS ORDERED: HYDROMORPHONE MDV 30 MG in IV NS 0.9% 15 ML, PCA TOTAL VOLUME 1 BAG IV PRN ×3 (17:00)
--- NOTE | 2019-11-30 17:00 | NUR ---
HOS1/RN RE-ADMITTED PT DISCHARGED FROM MS1 AND RE-ADMITTED FOR HOSPICE CARE. WITH ALREADY ON GOING DILAUDID DRIP @ 2MG/HR. PLAN OF CARE CONTINUED.
[2019-11-30] MEDS ORDERED: KEY,NONCONTROL,TO KEEP IN PYXI 1 EA MC ONE ×2 (17:07→20:11)
--- NOTE | 2019-11-30 19:30 | NUR ---
MS1 RN NOTES RECEIVED ON BED,OBTUNDED,PALE LOOKING,O2 AT 1L/NC IN USED.ON HOSPICE CARE,COMFORT MEASURES ONLY.NO VITAL SIGNS,NO LAB DRAW ORDERED.SUCTION MUCUS NEEDED ORALLY WHEN FAMILY PERMITTED.WITH GT TO GRAVITY,LEFT COLOSTOMY WITH NO OUTPUT.WITH RIGHT AND LEFT NEPHROSTOMY,NO OUTPUT AT THE MOMENT.WITH GEORGE PICC LINE INTACT AND PATENT.WILL CONTINUE TO MONITOR STATUS.FAMILY MEMBERS AT BEDSIDE
--- NOTE | 2019-11-30 19:30 | NUR ---
HOS1/RN AM SHIFT CLOSING NOTES NO ACUTE CHANGE OF CONDITION, PT ON HOSPICE CARE, ON GOING DILAUDID DRIP @ 2MG/HR, PT IS COMFORTABLE, (2) TWO FAMILY MEMBERS AT BEDSIDE. PT ENDORSED TO PM NURSE TO CONTINUE CARE. CL WITHIN REACHED AND SAFETY MAINTAINED.
--- NOTE | 2019-11-30 21:22 | NUR ---
MS1 RN NOTES NOTED BREATHING ABOVE 18,DILAUDID DRIP INCREASED TO 3MG/HR WITH FAMILY PERMITTED.
--- NOTE | 2019-12-01 01:00 | NUR ---
Pronouncement Pt is under hopice care. Pt found to be unresponsive, no response to verbal or painful stimuli, no respirations noted, no pulse palpable, pupils fixed and dilated, no heart sounds noted. Pt pronounced by at 0100
--- NOTE | 2019-12-01 01:05 | NUR ---
MS1 RN NOTES HOSPICE HEALTH MADE AWARE,SPOKE TO MYRIAM,WILL SEND HOSPICE NURSE
--- NOTE | 2019-12-01 01:05 | NUR ---
MS1 RN NOTES [facility] NOTIFIED ABOUT THE WITH CASE # [id number]
--- NOTE | 2019-12-01 01:10 | NUR ---
MS1 RN NOTES HOSPITALIST LEAF TINNER ASTRID MADE AWARE DR CHERRY
--- NOTE | 2019-12-01 01:15 | NUR ---
MS1 RN NOTES NURSING SAW GRINDER ELIA MADE AWARE
--- NOTE | 2019-12-01 01:23 | NUR ---
MS1 RN NOTES ADMITTING MADE AWARE,SPOKE WITH RIGOBERTO ROOT
--- NOTE | 2019-12-01 01:59 | NUR ---
MS1 RN NOTES HOSPICE NURSE CAME TO VERIFY/FINALIZE OF PATIENT
[2019-12-01] MEDS ORDERED: KEY,NONCONTROL,TO KEEP IN PYXI 1 EA MC ONE (02:02)
--- NOTE | 2019-12-01 02:45 | NUR ---
MS1 RN NOTES SPOKE TO HECTOR,DAUGHTER,WILL COME IN THE MORNING TO SIGN RELEASE FORM
--- NOTE | 2019-12-01 02:57 | NUR ---
MS1 RN NOTES POST MORTEM CARE RENDERED AND BODY WAS BROUGHT TO THE [facility].HOME SERVICE TECHNICIAN WITH WITH THE FAMILY FOR THE MORTUARY SERVICE.
== END 2019-12-01 01:00 | disposition expired | DRG 720 ==
LOC: HOSPICE1 16:33
PROVIDERS: ADMIT Internal Medicine; ATTEND Internal Medicine
DX: A41.9 Sepsis, unspecified organism (principal); J96.90 Respiratory failure, unspecified, unspecified whether with hypoxia or hypercapnia; R65.21 Severe sepsis with septic shock; J91.8 Pleural effusion in other conditions classified elsewhere; J18.9 Pneumonia, unspecified organism; C78.80 Secondary malignant neoplasm of unspecified digestive organ; D68.69 Other thrombophilia; K94.21 Gastrostomy hemorrhage; E87.2 Acidosis; E87.0 Hyperosmolality and hypernatremia; C56.9 Malignant neoplasm of unspecified ovary; E86.0 Dehydration; D64.9 Anemia, unspecified; E87.6 Hypokalemia; E11.9 Type 2 diabetes mellitus without complications; Z51.5 Encounter for palliative care; N13.6 Pyonephrosis; Z90.710 Acquired absence of both cervix and uterus; Z93.3 Colostomy status; B37.49 Other urogenital candidiasis; D47.3 Essential (hemorrhagic) thrombocythemia; Y84.9 Medical procedure, unspecified as the cause of abnormal reaction of the patient, or of later complication, without mention of misadventure at the time of the procedure; Y73.8 Miscellaneous gastroenterology and urology devices associated with adverse incidents, not elsewhere classified; Y92.129 Unspecified place in nursing home as the place of occurrence of the external cause; Z93.6 Other artificial openings of urinary tract status; Z86.718 Personal history of other venous thrombosis and embolism
CPT/HCPCS: A4216; A6403; G0378; J1170